=== PATIENT | male | born 1955 | race Caucasian/White ===

== ENCOUNTER 2018-09-26 22:51 | Inpatient (IN) | payer OTHER ==
[2018-09-27] MEDS ORDERED: ALBUTEROL/IPRATROPIUM (NEB) 3 ML AMP HHN
[2018-09-27] MEDS ORDERED: NACL 0.9% 3 ML SYG IV
[2018-09-27 05:48] LABS: ADD MAN DIFF? NO
[2018-09-27 05:56] LABS: BASOPHILS % 0.3 % (0.0-2.0); EOSINOPHILS # 0.1 10^3/ul (0.0-0.5); EOSINOPHILS % 1.5 % (0.0-7.0); HEMATOCRIT 34.6 % (42.0-52.0); HEMOGLOBIN 11.3 g/dl (14.0-18.0); LYMPHOCYTES # 2.1 10^3/ul (0.8-2.9); LYMPHOCYTES % 21.7 % (15.0-51.0); MEAN CORPUSCULAR HGB CONC 32.7 g/dl (32.0-37.0); MEAN CORPUSCULAR VOLUME 88.9 fl (82.0-101.0); MEAN PLATELET VOLUME 9.7 fl (7.4-10.4); MONOCYTE # 0.9 10^3/ul (0.3-0.9); MONOCYTES % 8.9 % (0.0-11.0); NEUTROPHIL # 6.4 10^3/ul (1.6-7.5); NEUTROPHILS % 66.9 % (39.0-77.0); NUCLEATED RED BLOOD CELLS% 0.2 /100WBC (0.0-0.0); PLATELET COUNT 202 10^3/UL (140-415); RED BLOOD COUNT 3.89 10^6/ul (4.70-6.10); RED CELL DISTRIBUTION WIDTH 15.5 % (11.5-14.5)
[2018-09-27 05:56] LABS: WHITE BLOOD COUNT 9.6 10^3/ul (4.8-10.8)
[2018-09-27 07:02] LABS: HEMOGLOBIN A1C 5.3 % (0-5.9)
[2018-09-27] MEDS: HEPARIN 5,000 UNIT/1 ML VIAL SC (08:10)
[2018-09-27 08:14] LABS: ALANINE AMINOTRANSFERASE 16 IU/L (13-69); ALBUMIN 4.3 g/dl (3.3-4.9); ALBUMIN/GLOBULIN RATIO 1.38; ALKALINE PHOSPHATASE 45 IU/L (42-121); ANION GAP 13 (5-13); ASPARTATE AMINO TRANSFERASE 20 IU/L (15-46); BILIRUBIN,INDIRECT 0.1 mg/dl (0-1.1); BILIRUBIN,TOTAL 0.1 mg/dl (0.2-1.3); BLOOD UREA NITROGEN 49 mg/dl (7-20); CALCIUM 9.7 mg/dl (8.4-10.2); CARBON DIOXIDE 30 mmol/L (21-31); CHLORIDE 98 mmol/L (97-110); CHOL/HDL RATIO 2.5 RATIO; CHOLESTEROL 122 mg/dl (100-200); CREATININE 4.95 mg/dl (0.61-1.24); Estimated GFR 12 mL/min (>60); GLUCOSE 82 mg/dl (70-220); HDL CHOLESTEROL 48 mg/dl (30-78); LDL CHOLESTEROL,CALCULATED 44 mg/dl; MAGNESIUM 1.9 mg/dl (1.7-2.5); PHOSPHORUS 4.2 mg/dl (2.5-4.9); POTASSIUM 3.4 mmol/L (3.5-5.1); SODIUM 141 mmol/L (135-144); TOTAL PROTEIN 7.4 g/dl (6.1-8.1); TRIGLYCERIDES 152 mg/dl (0-149)
[2018-09-27 08:49] LABS: LIPASE 371 U/L (23-300)
[2018-09-27] MEDS: morphine (ER) 30 MG TAB PO (09:38)
[2018-09-27] MEDS: POTASSIUM CHLORIDE (SR) 20 MEQ TAB PO (10:18)
[2018-09-27 19:42] LABS: HEPATITIS B SURFACE ANTIGEN NEGATIVE (NEGATIVE)
[2018-09-27] MEDS: ALBUMIN HUMAN 25% 100 ML IV (23:03)
[2018-09-28] MEDS: HEPARIN 1000 UNITS/ML 10 ML INJ CATHETER ×2 (00:13→17:59)
[2018-09-28] MEDS: HEPARIN 5,000 UNIT/1 ML VIAL SC ×3 (00:34→20:14)
[2018-09-28] MEDS: morphine (ER) 30 MG TAB PO ×3 (00:35→20:13)
[2018-09-28 05:44] LABS: ADD MAN DIFF? NO
[2018-09-28 05:49] LABS: WHITE BLOOD COUNT 8.9 10^3/ul (4.8-10.8)
[2018-09-28 05:49] LABS: BASOPHILS % 0.4 % (0.0-2.0); EOSINOPHILS # 0.3 10^3/ul (0.0-0.5); EOSINOPHILS % 3.3 % (0.0-7.0); HEMATOCRIT 33.5 % (42.0-52.0); HEMOGLOBIN 10.6 g/dl (14.0-18.0); LYMPHOCYTES # 2.1 10^3/ul (0.8-2.9); LYMPHOCYTES % 23.5 % (15.0-51.0); MEAN CORPUSCULAR HEMOGLOBIN 28.8 pg (29.0-33.0); MEAN CORPUSCULAR HGB CONC 31.6 g/dl (32.0-37.0); MEAN PLATELET VOLUME 9.8 fl (7.4-10.4); MONOCYTE # 0.8 10^3/ul (0.3-0.9); MONOCYTES % 9.3 % (0.0-11.0); NEUTROPHIL # 5.6 10^3/ul (1.6-7.5); NEUTROPHILS % 62.9 % (39.0-77.0); PLATELET COUNT 172 10^3/UL (140-415); RED BLOOD COUNT 3.68 10^6/ul (4.70-6.10); RED CELL DISTRIBUTION WIDTH 15.8 % (11.5-14.5)
[2018-09-28 06:15] LABS: ANION GAP 12 (5-13); BLOOD UREA NITROGEN 21 mg/dl (7-20); CALCIUM 9.4 mg/dl (8.4-10.2); CARBON DIOXIDE 30 mmol/L (21-31); CHLORIDE 100 mmol/L (97-110); CREATININE 2.81 mg/dl (0.61-1.24); Estimated GFR 23 mL/min (>60); GLUCOSE 117 mg/dl (70-220); MAGNESIUM 1.9 mg/dl (1.7-2.5); POTASSIUM 3.6 mmol/L (3.5-5.1); SODIUM 142 mmol/L (135-144)
[2018-09-28 06:17] LABS: LIPASE 562 U/L (23-300)
[2018-09-28] MEDS: HYDROCODONE/APAP (5/325) TAB PO (15:23)
[2018-09-29] MEDS: ALBUMIN HUMAN 25% 100 ML IV (00:37)
[2018-09-29] MEDS: HYDROCODONE/APAP (5/325) TAB PO ×3 (01:16→23:19)
[2018-09-29] MEDS: HYDROmorphONE 1 MG/ML SYG IV (01:41)
[2018-09-29] MEDS: morphine (ER) 30 MG TAB PO ×2 (08:36→20:53)
[2018-09-29] MEDS: HEPARIN 5,000 UNIT/1 ML VIAL SC ×2 (08:42→21:47)
[2018-09-29 10:54] LABS: ADD MAN DIFF? NO
[2018-09-29] MEDS ORDERED: morphine 2 MG INJ IV (11:00)
[2018-09-29 11:02] LABS: BASOPHILS % 0.4 % (0.0-2.0); EOSINOPHILS # 0.4 10^3/ul (0.0-0.5); HEMATOCRIT 38.1 % (42.0-52.0); HEMOGLOBIN 11.9 g/dl (14.0-18.0); LYMPHOCYTES % 21.5 % (15.0-51.0); MEAN CORPUSCULAR HEMOGLOBIN 29.2 pg (29.0-33.0); MEAN CORPUSCULAR HGB CONC 31.2 g/dl (32.0-37.0); MEAN CORPUSCULAR VOLUME 93.4 fl (82.0-101.0); MEAN PLATELET VOLUME 9.8 fl (7.4-10.4); MONOCYTE # 0.8 10^3/ul (0.3-0.9); MONOCYTES % 8.1 % (0.0-11.0); NEUTROPHIL # 6.1 10^3/ul (1.6-7.5); NEUTROPHILS % 65.4 % (39.0-77.0); PLATELET COUNT 172 10^3/UL (140-415); RED BLOOD COUNT 4.08 10^6/ul (4.70-6.10); RED CELL DISTRIBUTION WIDTH 16.5 % (11.5-14.5)
[2018-09-29 11:02] LABS: WHITE BLOOD COUNT 9.3 10^3/ul (4.8-10.8)
[2018-09-29 11:19] LABS: ANION GAP 13 (5-13); BLOOD UREA NITROGEN 26 mg/dl (7-20); CALCIUM 10.2 mg/dl (8.4-10.2); CARBON DIOXIDE 29 mmol/L (21-31); CHLORIDE 99 mmol/L (97-110); CREATININE 4.02 mg/dl (0.61-1.24); Estimated GFR 15 mL/min (>60); GLUCOSE 118 mg/dl (70-220); LIPASE 451 U/L (23-300); POTASSIUM 4.6 mmol/L (3.5-5.1); SODIUM 141 mmol/L (135-144)
[2018-09-29 11:30] LABS: TROPONIN-I 0.027 ng/ml (0.000-0.120)
[2018-09-29] MEDS: ACETAMINOPHEN 325 MG TAB PO (18:44)
[2018-09-30] MEDS: SOD CHLORIDE 0.9% 1,000 ML IV (03:51)
[2018-09-30] MEDS: KETOROLAC 30 MG INJ IV (03:56)
[2018-09-30] MEDS: SOD CHLORIDE 0.9% 250 ML IV (04:00)
[2018-09-30] MEDS: HYDROmorphONE 1 MG/ML SYG IV ×3 (04:54→14:33)
[2018-09-30] MEDS: morphine (ER) 30 MG TAB PO ×2 (08:12→20:42)
[2018-09-30] MEDS: ALBUMIN HUMAN 25% 100 ML IV (12:19)
[2018-09-30] MEDS: IOHEXOL 14.3 MG(I)/ML (ADULT) BTL PO (14:29)
[2018-09-30] MEDS: HEPARIN 1000 UNITS/ML 10 ML INJ CATHETER (15:25)
[2018-09-30 18:57] LABS: B-TYPE NATRIURETIC PEPTIDE 2160 PG/ML (0-125)
[2018-09-30 18:59] LABS: TROPONIN-I 0.023 ng/ml (0.000-0.120)
[2018-10-01 01:53] LABS: TROPONIN-I 0.039 ng/ml (0.000-0.120)
[2018-10-01 07:03] LABS: ADD MAN DIFF? NO
[2018-10-01 07:05] LABS: WHITE BLOOD COUNT 8.3 10^3/ul (4.8-10.8)
[2018-10-01 07:05] LABS: BASOPHILS % 0.4 % (0.0-2.0); EOSINOPHILS # 0.5 10^3/ul (0.0-0.5); EOSINOPHILS % 5.4 % (0.0-7.0); HEMATOCRIT 35.1 % (42.0-52.0); HEMOGLOBIN 10.9 g/dl (14.0-18.0); LYMPHOCYTES # 2.2 10^3/ul (0.8-2.9); LYMPHOCYTES % 26.2 % (15.0-51.0); MEAN CORPUSCULAR HEMOGLOBIN 29.5 pg (29.0-33.0); MEAN CORPUSCULAR HGB CONC 31.1 g/dl (32.0-37.0); MEAN CORPUSCULAR VOLUME 94.9 fl (82.0-101.0); MEAN PLATELET VOLUME 9.8 fl (7.4-10.4); MONOCYTE # 0.8 10^3/ul (0.3-0.9); MONOCYTES % 9.1 % (0.0-11.0); NEUTROPHIL # 4.9 10^3/ul (1.6-7.5); NEUTROPHILS % 58.5 % (39.0-77.0); PLATELET COUNT 172 10^3/UL (140-415); RED CELL DISTRIBUTION WIDTH 16.6 % (11.5-14.5)
[2018-10-01 07:34] LABS: ANION GAP 16 (5-13); BLOOD UREA NITROGEN 31 mg/dl (7-20); CALCIUM 9.9 mg/dl (8.4-10.2); CARBON DIOXIDE 25 mmol/L (21-31); CHLORIDE 97 mmol/L (97-110); CREATININE 4.21 mg/dl (0.61-1.24); Estimated GFR 14 mL/min (>60); GLUCOSE 79 mg/dl (70-220); POTASSIUM 4.9 mmol/L (3.5-5.1); SODIUM 138 mmol/L (135-144)
[2018-10-01 07:35] LABS: LIPASE 267 U/L (23-300)
[2018-10-01 08:05] LABS: MAGNESIUM 1.8 mg/dl (1.7-2.5)
[2018-10-01 08:05] LABS: PHOSPHORUS 6.1 mg/dl (2.5-4.9)
[2018-10-01] MEDS: morphine (ER) 30 MG TAB PO ×2 (08:13→20:55)
[2018-10-01 08:23] LABS: TROPONIN-I 0.028 ng/ml (0.000-0.120)
[2018-10-01] MEDS: METOPROLOL 25 MG TAB PO ×3 (10:11→20:55)
[2018-10-01 13:00] LABS: TROPONIN-I 0.019 ng/ml (0.000-0.120)
[2018-10-01] MEDS: HYDROmorphONE 1 MG/ML SYG IV (14:14)
[2018-10-01 19:00] LABS: TROPONIN-I 0.015 ng/ml (0.000-0.120)
[2018-10-02 01:26] LABS: TROPONIN-I 0.017 ng/ml (0.000-0.120)
[2018-10-02 06:15] LABS: ADD MAN DIFF? NO
[2018-10-02 06:24] LABS: BASOPHILS % 0.2 % (0.0-2.0); EOSINOPHILS % 0.3 % (0.0-7.0); HEMATOCRIT 37.4 % (42.0-52.0); HEMOGLOBIN 12.2 g/dl (14.0-18.0); LYMPHOCYTES # 0.7 10^3/ul (0.8-2.9); LYMPHOCYTES % 6.4 % (15.0-51.0); MEAN CORPUSCULAR HEMOGLOBIN 29.2 pg (29.0-33.0); MEAN CORPUSCULAR HGB CONC 32.6 g/dl (32.0-37.0); MEAN CORPUSCULAR VOLUME 89.5 fl (82.0-101.0); MEAN PLATELET VOLUME 9.4 fl (7.4-10.4); MONOCYTE # 0.6 10^3/ul (0.3-0.9); MONOCYTES % 5.9 % (0.0-11.0); NEUTROPHIL # 8.9 10^3/ul (1.6-7.5); NEUTROPHILS % 86.5 % (39.0-77.0); PLATELET COUNT 186 10^3/UL (140-415); RED BLOOD COUNT 4.18 10^6/ul (4.70-6.10); RED CELL DISTRIBUTION WIDTH 16.3 % (11.5-14.5)
[2018-10-02 06:24] LABS: WHITE BLOOD COUNT 10.3 10^3/ul (4.8-10.8)
[2018-10-02 06:43] LABS: ANION GAP 20 (5-13); BLOOD UREA NITROGEN 53 mg/dl (7-20); CALCIUM 10.2 mg/dl (8.4-10.2); CARBON DIOXIDE 25 mmol/L (21-31); CHLORIDE 92 mmol/L (97-110); CREATININE 4.86 mg/dl (0.61-1.24); Estimated GFR 12 mL/min (>60); GLUCOSE 108 mg/dl (70-220); LIPASE 194 U/L (23-300); SODIUM 137 mmol/L (135-144)
[2018-10-02] MEDS: morphine (ER) 30 MG TAB PO ×2 (08:18→22:20)
[2018-10-02] MEDS: METOPROLOL 25 MG TAB PO ×2 (08:19→21:00)
[2018-10-02] MEDS: BISACODYL 10 MG SUPP PR (16:36)
[2018-10-02] MEDS: SOD CHLORIDE 0.9% 1,000 ML IV (17:19)
[2018-10-02] MEDS: CEFEPIME 1GM/50 ML (PMX) 50 ML IVPB (22:12)
[2018-10-03 06:16] LABS: ADD MAN DIFF? NO
[2018-10-03 06:21] LABS: WHITE BLOOD COUNT 16.4 10^3/ul (4.8-10.8)
[2018-10-03 06:21] LABS: BASOPHILS % 0.2 % (0.0-2.0); EOSINOPHILS # 0.1 10^3/ul (0.0-0.5); EOSINOPHILS % 0.6 % (0.0-7.0); HEMATOCRIT 34.1 % (42.0-52.0); HEMOGLOBIN 11.1 g/dl (14.0-18.0); LYMPHOCYTES # 1.4 10^3/ul (0.8-2.9); LYMPHOCYTES % 8.5 % (15.0-51.0); MEAN CORPUSCULAR HEMOGLOBIN 29.2 pg (29.0-33.0); MEAN CORPUSCULAR HGB CONC 32.6 g/dl (32.0-37.0); MEAN CORPUSCULAR VOLUME 89.7 fl (82.0-101.0); MEAN PLATELET VOLUME 9.8 fl (7.4-10.4); MONOCYTE # 1.3 10^3/ul (0.3-0.9); MONOCYTES % 8.2 % (0.0-11.0); NEUTROPHIL # 13.4 10^3/ul (1.6-7.5); NEUTROPHILS % 81.9 % (39.0-77.0); PLATELET COUNT 153 10^3/UL (140-415); RED CELL DISTRIBUTION WIDTH 16.5 % (11.5-14.5)
[2018-10-03 06:58] LABS: ANION GAP 20 (5-13); BLOOD UREA NITROGEN 79 mg/dl (7-20); CALCIUM 9.4 mg/dl (8.4-10.2); CARBON DIOXIDE 15 mmol/L (21-31); CHLORIDE 99 mmol/L (97-110); CREATININE 4.93 mg/dl (0.61-1.24); Estimated GFR 12 mL/min (>60); GLUCOSE 83 mg/dl (70-220); MAGNESIUM 1.8 mg/dl (1.7-2.5); PHOSPHORUS 8.1 mg/dl (2.5-4.9); POTASSIUM 4.8 mmol/L (3.5-5.1); SODIUM 134 mmol/L (135-144)
[2018-10-03] MEDS: morphine (ER) 30 MG TAB PO ×2 (08:54→22:08)
[2018-10-03] MEDS: POLYETHYLENE GLYCOL 17 GM PACKET PO (08:54)
[2018-10-03] MEDS: METOPROLOL 25 MG TAB PO ×3 (08:57→22:09)
[2018-10-03] MEDS: MULTIVIT/CA CARB/B CMPLX/FA TAB PO (09:10)
[2018-10-03 11:06] LABS: ADD UMIC YES; UR ASCORBIC ACID NEGATIVE (NEGATIVE); UR BILIRUBIN (Dip) NEGATIVE (NEGATIVE); UR BLOOD (Dip) 3+ mg/dL (NEGATIVE); UR CLARITY CLOUDY (CLEAR); UR COLOR AMBER (YELLOW); UR GLUCOSE (Dip) NEGATIVE (NEGATIVE); UR KETONES (Dip) TRACE mg/dL (NEGATIVE); UR LEUKOCYTE ESTERASE (Dip) TRACE Leu/ul (NEGATIVE); UR NITRITE (Dip) NEGATIVE (NEGATIVE); UR RBC > 182 /HPF (0-5); UR SPECIFIC GRAVITY (Dip) 1.015 (1.003-1.030); UR SQUAMOUS EPITHELIAL CELL FEW /HPF (FEW); UR TOTAL PROTEIN (Dip) 2+ mg/dl (NEGATIVE); UR UROBILINOGEN (Dip) NEGATIVE (NEGATIVE); UR WBC 24 /HPF (0-5)
[2018-10-03] MEDS: SEVELAMER CARBONATE 800 MG TABLET PO ×2 (11:32→18:00)
[2018-10-03] MEDS: HEPARIN 1000 UNITS/ML 10 ML INJ CATHETER (14:56)
[2018-10-03] MEDS: METOCLOPRAMIDE 10 MG INJ IV ×2 (15:56→21:05)
[2018-10-03] MEDS: HYOSCYAMINE 0.125 MG SUBL TAB PO ×2 (16:46→22:09)
[2018-10-03] MEDS: CEFEPIME 1GM/50 ML (PMX) 50 ML IVPB (21:00)
[2018-10-03] MEDS ORDERED: HYOSCYAMINE 0.125 MG SUBL TAB PO (22:00)
[2018-10-04] MEDS: METOCLOPRAMIDE 10 MG INJ IV ×4 (03:30→21:23)
[2018-10-04] MEDS: HYOSCYAMINE 0.125 MG SUBL TAB PO ×3 (05:33→21:24)
[2018-10-04 06:00] LABS: ADD MAN DIFF? NO
[2018-10-04 06:11] LABS: ABNORMAL IP MESSAGE 1; BASOPHILS % 0.2 % (0.0-2.0); EOSINOPHILS # 0.3 10^3/ul (0.0-0.5); EOSINOPHILS % 2.1 % (0.0-7.0); HEMATOCRIT 31.2 % (42.0-52.0); HEMOGLOBIN 10.1 g/dl (14.0-18.0); LYMPHOCYTES # 1.6 10^3/ul (0.8-2.9); LYMPHOCYTES % 10.9 % (15.0-51.0); MEAN CORPUSCULAR HEMOGLOBIN 29.6 pg (29.0-33.0); MEAN CORPUSCULAR HGB CONC 32.4 g/dl (32.0-37.0); MEAN CORPUSCULAR VOLUME 91.5 fl (82.0-101.0); MEAN PLATELET VOLUME 9.6 fl (7.4-10.4); MONOCYTE # 1.5 10^3/ul (0.3-0.9); MONOCYTES % 10.4 % (0.0-11.0); NEUTROPHIL # 11.1 10^3/ul (1.6-7.5); NEUTROPHILS % 75.6 % (39.0-77.0); PLATELET COUNT 136 10^3/UL (140-415); POSITIVE DIFF @See below; RED BLOOD COUNT 3.41 10^6/ul (4.70-6.10); RED CELL DISTRIBUTION WIDTH 17.1 % (11.5-14.5)
[2018-10-04 06:11] LABS: WHITE BLOOD COUNT 14.7 10^3/ul (4.8-10.8)
[2018-10-04 06:38] LABS: ALANINE AMINOTRANSFERASE 21 IU/L (13-69); ALBUMIN 3.4 g/dl (3.3-4.9); ALBUMIN/GLOBULIN RATIO 1.21; ALKALINE PHOSPHATASE 42 IU/L (42-121); ANION GAP 13 (5-13); ASPARTATE AMINO TRANSFERASE 18 IU/L (15-46); BILIRUBIN,INDIRECT 0.2 mg/dl (0-1.1); BILIRUBIN,TOTAL 0.2 mg/dl (0.2-1.3); BLOOD UREA NITROGEN 49 mg/dl (7-20); CALCIUM 9.1 mg/dl (8.4-10.2); CARBON DIOXIDE 25 mmol/L (21-31); CHLORIDE 98 mmol/L (97-110); CREATININE 3.32 mg/dl (0.61-1.24); Estimated GFR 19 mL/min (>60); GLUCOSE 93 mg/dl (70-220); POTASSIUM 4.4 mmol/L (3.5-5.1); SODIUM 136 mmol/L (135-144); TOTAL PROTEIN 6.2 g/dl (6.1-8.1)
[2018-10-04] MEDS: SEVELAMER CARBONATE 800 MG TABLET PO ×3 (09:00→17:08)
[2018-10-04] MEDS: METOPROLOL 25 MG TAB PO ×2 (09:00→20:22)
[2018-10-04] MEDS ORDERED: POLYETHYLENE GLYCOL 17 GM PACKET PO (09:00)
[2018-10-04] MEDS: morphine (ER) 30 MG TAB PO ×2 (09:03→20:21)
[2018-10-04] MEDS: MULTIVIT/CA CARB/B CMPLX/FA TAB PO (09:05)
[2018-10-04] MEDS: POLYETHYLENE GLYCOL 17 GM PACKET PO (09:06)
[2018-10-04] MEDS: HYDROCODONE/APAP (5/325) TAB PO (17:08)
[2018-10-04] MEDS: CEFEPIME 1GM/50 ML (PMX) 50 ML IVPB (20:22)
[2018-10-05] MEDS: METOCLOPRAMIDE 10 MG INJ IV ×4 (03:48→20:32)
[2018-10-05] MEDS: morphine 2 MG INJ IV ×3 (03:50→18:03)
[2018-10-05] MEDS: HYOSCYAMINE 0.125 MG SUBL TAB PO ×3 (05:33→22:16)
[2018-10-05 06:27] LABS: ADD MAN DIFF? NO
[2018-10-05 06:36] LABS: WHITE BLOOD COUNT 12.5 10^3/ul (4.8-10.8)
[2018-10-05 06:36] LABS: BASOPHILS % 0.2 % (0.0-2.0); EOSINOPHILS # 0.2 10^3/ul (0.0-0.5); EOSINOPHILS % 1.8 % (0.0-7.0); HEMATOCRIT 29.5 % (42.0-52.0); HEMOGLOBIN 9.6 g/dl (14.0-18.0); LYMPHOCYTES % 7.8 % (15.0-51.0); MEAN CORPUSCULAR HEMOGLOBIN 29.7 pg (29.0-33.0); MEAN CORPUSCULAR HGB CONC 32.5 g/dl (32.0-37.0); MEAN CORPUSCULAR VOLUME 91.3 fl (82.0-101.0); MEAN PLATELET VOLUME 9.8 fl (7.4-10.4); MONOCYTE # 1.2 10^3/ul (0.3-0.9); MONOCYTES % 9.7 % (0.0-11.0); NEUTROPHILS % 79.9 % (39.0-77.0); PLATELET COUNT 165 10^3/UL (140-415); RED BLOOD COUNT 3.23 10^6/ul (4.70-6.10); RED CELL DISTRIBUTION WIDTH 17.1 % (11.5-14.5)
[2018-10-05] MEDS ORDERED: PROPOFOL 200 MG INJ (07:00)
[2018-10-05 07:10] LABS: ANION GAP 12 (5-13); BLOOD UREA NITROGEN 45 mg/dl (7-20); CALCIUM 9.4 mg/dl (8.4-10.2); CARBON DIOXIDE 25 mmol/L (21-31); CHLORIDE 97 mmol/L (97-110); CREATININE 3.16 mg/dl (0.61-1.24); Estimated GFR 20 mL/min (>60); GLUCOSE 129 mg/dl (70-220); POTASSIUM 3.8 mmol/L (3.5-5.1); SODIUM 134 mmol/L (135-144)
[2018-10-05] MEDS: SEVELAMER CARBONATE 800 MG TABLET PO ×3 (08:22→18:08)
[2018-10-05] MEDS: POLYETHYLENE GLYCOL 17 GM PACKET PO (08:22)
[2018-10-05] MEDS: METOPROLOL 25 MG TAB PO ×2 (08:22→20:31)
[2018-10-05] MEDS: MULTIVIT/CA CARB/B CMPLX/FA TAB PO (08:22)
[2018-10-05] MEDS: morphine (ER) 30 MG TAB PO ×2 (09:44→20:31)
[2018-10-05] MEDS: CYCLOBENZAPRINE 10 MG TAB PO ×2 (13:30→20:30)
[2018-10-05] MEDS: LORAZEPAM 2 MG INJ IV (14:02)
[2018-10-05] MEDS: DEXTROSE 5%-0.45% NACL 1,000 ML IV (14:04)
[2018-10-05] MEDS ORDERED: VANCOMYCIN IV PER PHARMACY XX (15:00)
[2018-10-05] MEDS ORDERED: AMIKACIN IV PER PHARMACY XX (15:00)
[2018-10-05 15:09] LABS: MAGNESIUM 1.7 mg/dl (1.7-2.5)
[2018-10-05 15:10] LABS: CREATINE KINASE 21 IU/L (23-200)
[2018-10-05 15:16] LABS: IRON 21 ug/dl (35-150)
[2018-10-05 15:26] LABS: % IRON SATURATION 11 % SAT (22-52); TOTAL IRON BINDING CAPACITY 189 ug/dl (241-421)
[2018-10-05] MEDS ORDERED: DIPHENHYDRAMINE 50 MG INJ IV (16:00)
[2018-10-05] MEDS ORDERED: hydrALAzine 20 MG INJ IV (16:00)
[2018-10-05] MEDS ORDERED: LABETALOL HCL 20MG INJ IV (16:00)
[2018-10-05] MEDS ORDERED: EPHEDrine SULFATE 50 MG/5 ML SYG IV (16:00)
[2018-10-05] MEDS ORDERED: ALBUTEROL 0.083% (NEB) 2.5 MG/3 ML AMP HHN (16:00)
[2018-10-05] MEDS ORDERED: ONDANSETRON 4 MG INJ IV (16:00)
[2018-10-05] MEDS ORDERED: MIDAZOLAM 1 MG/ML 2 ML INJ IV (16:00)
[2018-10-05] MEDS: PROPOFOL 40 ML (16:32)
[2018-10-05] MEDS: LIDOCAINE 2% (SDV) 5 ML INJ (16:32)
[2018-10-05 16:44] LABS: FOLATE > 20.0 ng/ml (2.8-20.0)
[2018-10-05] MEDS: AMIKACIN 500 MG in SOD CHLORIDE 0.9% 100 ML IVPB (17:16)
[2018-10-05] MEDS: VANCOMYCIN HCL 1.25 GM in SOD CHLORIDE 0.9% 250 ML IVPB (18:38)
[2018-10-05] MEDS: HEPARIN 5,000 UNIT/1 ML VIAL SC (20:32)
[2018-10-06] MEDS: METOCLOPRAMIDE 10 MG INJ IV ×4 (03:30→21:17)
[2018-10-06] MEDS: HEPARIN 1000 UNITS/ML 10 ML INJ CATHETER ×2 (04:20→04:23)
[2018-10-06] MEDS: HYOSCYAMINE 0.125 MG SUBL TAB PO ×3 (05:42→21:19)
[2018-10-06 05:53] LABS: ADD MAN DIFF? NO
[2018-10-06 06:05] LABS: BASOPHILS % 0.2 % (0.0-2.0); EOSINOPHILS # 0.3 10^3/ul (0.0-0.5); EOSINOPHILS % 3.5 % (0.0-7.0); HEMATOCRIT 29.1 % (42.0-52.0); HEMOGLOBIN 9.3 g/dl (14.0-18.0); LYMPHOCYTES # 1.3 10^3/ul (0.8-2.9); LYMPHOCYTES % 14.4 % (15.0-51.0); MEAN CORPUSCULAR HEMOGLOBIN 29.5 pg (29.0-33.0); MEAN CORPUSCULAR VOLUME 92.4 fl (82.0-101.0); MEAN PLATELET VOLUME 9.7 fl (7.4-10.4); MONOCYTE # 0.9 10^3/ul (0.3-0.9); NEUTROPHIL # 6.2 10^3/ul (1.6-7.5); NEUTROPHILS % 71.2 % (39.0-77.0); PLATELET COUNT 185 10^3/UL (140-415); RED BLOOD COUNT 3.15 10^6/ul (4.70-6.10); RED CELL DISTRIBUTION WIDTH 17.2 % (11.5-14.5)
[2018-10-06 06:05] LABS: WHITE BLOOD COUNT 8.8 10^3/ul (4.8-10.8)
[2018-10-06 06:41] LABS: ANION GAP 10 (5-13); BLOOD UREA NITROGEN 17 mg/dl (7-20); CALCIUM 8.5 mg/dl (8.4-10.2); CARBON DIOXIDE 26 mmol/L (21-31); CHLORIDE 103 mmol/L (97-110); CREATININE 1.32 mg/dl (0.61-1.24); Estimated GFR 55 mL/min (>60); GLUCOSE 104 mg/dl (70-220); MAGNESIUM 1.7 mg/dl (1.7-2.5); POTASSIUM 3.8 mmol/L (3.5-5.1); SODIUM 139 mmol/L (135-144)
[2018-10-06] MEDS: MULTIVIT/CA CARB/B CMPLX/FA TAB PO (09:46)
[2018-10-06] MEDS: CYCLOBENZAPRINE 10 MG TAB PO ×3 (09:46→21:20)
[2018-10-06] MEDS: SEVELAMER CARBONATE 800 MG TABLET PO ×3 (09:46→17:03)
[2018-10-06] MEDS: METOPROLOL 25 MG TAB PO ×2 (09:47→21:20)
[2018-10-06] MEDS: POLYETHYLENE GLYCOL 17 GM PACKET PO (09:47)
[2018-10-06] MEDS: morphine (ER) 30 MG TAB PO ×2 (09:52→21:19)
[2018-10-06] MEDS: HEPARIN 5,000 UNIT/1 ML VIAL SC ×2 (10:15→21:27)
[2018-10-06] MEDS: SOD FERRIC GLUC COMPLX 125 MG in SOD CHLORIDE 0.9% 100 ML IVPB (12:25)
[2018-10-06] MEDS: SUCRALFATE (100 MG/ML) 10ML CUP PO ×3 (13:18→21:19)
[2018-10-06] MEDS: morphine 2 MG INJ IV ×2 (15:25→20:02)
[2018-10-06] MEDS: PANTOPRAZOLE (EC) 40 MG TAB PO (17:03)
[2018-10-06] MEDS: AMIKACIN 300 MG in SOD CHLORIDE 0.9% 100 ML IVPB (19:01)
[2018-10-07] MEDS: METOCLOPRAMIDE 10 MG INJ IV ×4 (02:44→21:02)
[2018-10-07] MEDS: HYOSCYAMINE 0.125 MG SUBL TAB PO ×3 (05:12→22:00)
[2018-10-07] MEDS: PANTOPRAZOLE (EC) 40 MG TAB PO ×2 (05:12→17:44)
[2018-10-07] MEDS: morphine 2 MG INJ IV ×4 (05:17→21:00)
[2018-10-07 05:52] LABS: ADD MAN DIFF? NO
[2018-10-07 05:57] LABS: WHITE BLOOD COUNT 7.7 10^3/ul (4.8-10.8)
[2018-10-07 05:57] LABS: BASOPHILS % 0.4 % (0.0-2.0); EOSINOPHILS # 0.4 10^3/ul (0.0-0.5); EOSINOPHILS % 4.8 % (0.0-7.0); HEMATOCRIT 28.1 % (42.0-52.0); LYMPHOCYTES # 2.2 10^3/ul (0.8-2.9); LYMPHOCYTES % 28.5 % (15.0-51.0); MEAN CORPUSCULAR HEMOGLOBIN 29.8 pg (29.0-33.0); MEAN PLATELET VOLUME 9.8 fl (7.4-10.4); MONOCYTES % 12.5 % (0.0-11.0); NEUTROPHIL # 4.1 10^3/ul (1.6-7.5); NEUTROPHILS % 53.1 % (39.0-77.0); NUCLEATED RED BLOOD CELLS% 0.3 /100WBC (0.0-0.0); PLATELET COUNT 239 10^3/UL (140-415); RED BLOOD COUNT 3.02 10^6/ul (4.70-6.10); RED CELL DISTRIBUTION WIDTH 17.4 % (11.5-14.5)
[2018-10-07 06:21] LABS: ANION GAP 5 (5-13); BLOOD UREA NITROGEN 20 mg/dl (7-20); CALCIUM 8.9 mg/dl (8.4-10.2); CARBON DIOXIDE 27 mmol/L (21-31); CHLORIDE 107 mmol/L (97-110); CREATININE 2.26 mg/dl (0.61-1.24); Estimated GFR 30 mL/min (>60); GLUCOSE 93 mg/dl (70-220); POTASSIUM 4.4 mmol/L (3.5-5.1); SODIUM 139 mmol/L (135-144)
[2018-10-07 06:25] LABS: VANCOMYCIN,RANDOM 10.5 ug/ml
[2018-10-07 06:50] LABS: MAGNESIUM 1.7 mg/dl (1.7-2.5)
[2018-10-07] MEDS: MULTIVIT/CA CARB/B CMPLX/FA TAB PO (08:47)
[2018-10-07] MEDS: SEVELAMER CARBONATE 800 MG TABLET PO ×3 (08:47→17:44)
[2018-10-07] MEDS: METOPROLOL 25 MG TAB PO ×3 (08:47→20:51)
[2018-10-07] MEDS: SUCRALFATE (100 MG/ML) 10ML CUP PO ×4 (08:48→20:50)
[2018-10-07] MEDS: morphine (ER) 30 MG TAB PO ×2 (08:48→20:52)
[2018-10-07] MEDS: CYCLOBENZAPRINE 10 MG TAB PO ×2 (08:48→12:18)
[2018-10-07] MEDS: POLYETHYLENE GLYCOL 17 GM PACKET PO (08:48)
[2018-10-07] MEDS: HEPARIN 5,000 UNIT/1 ML VIAL SC ×2 (09:52→21:25)
[2018-10-07 10:55] LABS: HEPATITIS C VIRAL ANTIBODY NEGATIVE (NEGATIVE)
[2018-10-07] MEDS ORDERED: SOD FERRIC GLUC COMPLX 125 MG in SOD CHLORIDE 0.9% 100 ML IVPB (13:00)
[2018-10-07] MEDS: SOD FERRIC GLUC COMPLX 125 MG in SOD CHLORIDE 0.9% 100 ML IVPB (13:35)
[2018-10-07] MEDS: LACTULOSE 30ML CUP PO (16:31)
[2018-10-07] MEDS: HEPARIN 1000 UNITS/ML 10 ML INJ CATHETER (16:36)
[2018-10-07] MEDS: VANCOMYCIN 1 GM 250 ML IVPB (17:45)
[2018-10-07] MEDS: ACETAMINOPHEN 325 MG TAB PO (19:37)
[2018-10-07] MEDS: AMIKACIN 300 MG in SOD CHLORIDE 0.9% 100 ML IVPB (20:50)
[2018-10-08] MEDS: METOCLOPRAMIDE 10 MG INJ IV ×4 (03:38→21:35)
[2018-10-08] MEDS: PANTOPRAZOLE (EC) 40 MG TAB PO ×2 (05:36→17:39)
[2018-10-08] MEDS: HYOSCYAMINE 0.125 MG SUBL TAB PO ×3 (05:37→21:35)
[2018-10-08] MEDS: morphine 2 MG INJ IV ×3 (05:45→17:53)
[2018-10-08 06:06] LABS: ADD MAN DIFF? NO
[2018-10-08 06:22] LABS: BASOPHILS % 0.6 % (0.0-2.0); EOSINOPHILS # 0.3 10^3/ul (0.0-0.5); EOSINOPHILS % 4.6 % (0.0-7.0); HEMATOCRIT 29.3 % (42.0-52.0); LYMPHOCYTES # 2.4 10^3/ul (0.8-2.9); LYMPHOCYTES % 33.6 % (15.0-51.0); MEAN CORPUSCULAR HGB CONC 30.7 g/dl (32.0-37.0); MEAN CORPUSCULAR VOLUME 94.5 fl (82.0-101.0); MEAN PLATELET VOLUME 9.4 fl (7.4-10.4); MONOCYTE # 0.8 10^3/ul (0.3-0.9); NEUTROPHIL # 3.3 10^3/ul (1.6-7.5); NEUTROPHILS % 47.5 % (39.0-77.0); PLATELET COUNT 229 10^3/UL (140-415); RED CELL DISTRIBUTION WIDTH 16.9 % (11.5-14.5)
[2018-10-08 06:45] LABS: ANION GAP 6 (5-13); BLOOD UREA NITROGEN 11 mg/dl (7-20); CARBON DIOXIDE 30 mmol/L (21-31); CHLORIDE 104 mmol/L (97-110); CREATININE 1.88 mg/dl (0.61-1.24); Estimated GFR 37 mL/min (>60); GLUCOSE 94 mg/dl (70-220); POTASSIUM 4.8 mmol/L (3.5-5.1); SODIUM 140 mmol/L (135-144)
[2018-10-08] MEDS: METOPROLOL 25 MG TAB PO ×3 (08:33→20:28)
[2018-10-08] MEDS: SEVELAMER CARBONATE 800 MG TABLET PO ×3 (08:34→17:39)
[2018-10-08] MEDS: morphine (ER) 30 MG TAB PO ×2 (08:34→20:27)
[2018-10-08] MEDS: SUCRALFATE (100 MG/ML) 10ML CUP PO ×4 (08:34→20:27)
[2018-10-08] MEDS: POLYETHYLENE GLYCOL 17 GM PACKET PO (08:35)
[2018-10-08] MEDS: MULTIVIT/CA CARB/B CMPLX/FA TAB PO (08:35)
[2018-10-08] MEDS: HEPARIN 5,000 UNIT/1 ML VIAL SC ×2 (08:39→21:21)
[2018-10-08] MEDS: CREON (12k-38k-60k) 1 CAP PO ×2 (12:10→17:39)
[2018-10-08] MEDS: CYANOCOBALAMIN 1000 MCG INJ IM (12:14)
[2018-10-08] MEDS: SOD FERRIC GLUC COMPLX 125 MG in SOD CHLORIDE 0.9% 100 ML IVPB (14:01)
[2018-10-09] MEDS: METOCLOPRAMIDE 10 MG INJ IV ×2 (03:20→09:30)
[2018-10-09] MEDS: HYOSCYAMINE 0.125 MG SUBL TAB PO ×3 (05:52→21:21)
[2018-10-09] MEDS: PANTOPRAZOLE (EC) 40 MG TAB PO ×2 (05:52→17:07)
[2018-10-09] MEDS: morphine 2 MG INJ IV ×4 (05:55→21:14)
[2018-10-09] MEDS: morphine (ER) 30 MG TAB PO ×2 (08:20→19:53)
[2018-10-09] MEDS: SUCRALFATE (100 MG/ML) 10ML CUP PO ×4 (08:20→21:13)
[2018-10-09] MEDS: MULTIVIT/CA CARB/B CMPLX/FA TAB PO (08:21)
[2018-10-09] MEDS: METOPROLOL 25 MG TAB PO ×3 (08:21→21:00)
[2018-10-09] MEDS: CREON (12k-38k-60k) 1 CAP PO ×3 (08:21→17:07)
[2018-10-09] MEDS: CHOLECALCIFEROL 2,000 UNIT CAP PO (08:21)
[2018-10-09] MEDS: SEVELAMER CARBONATE 800 MG TABLET PO ×3 (08:21→17:07)
[2018-10-09] MEDS: POLYETHYLENE GLYCOL 17 GM PACKET PO (08:22)
[2018-10-09] MEDS: HEPARIN 5,000 UNIT/1 ML VIAL SC ×2 (09:37→21:31)
[2018-10-09 12:46] LABS: ALANINE AMINOTRANSFERASE 17 IU/L (13-69); ALBUMIN 3.3 g/dl (3.3-4.9); ALBUMIN/GLOBULIN RATIO 1.13; ALKALINE PHOSPHATASE 50 IU/L (42-121); ANION GAP 9 (5-13); ASPARTATE AMINO TRANSFERASE 16 IU/L (15-46); BILIRUBIN,INDIRECT 0.2 mg/dl (0-1.1); BILIRUBIN,TOTAL 0.2 mg/dl (0.2-1.3); BLOOD UREA NITROGEN 21 mg/dl (7-20); CARBON DIOXIDE 30 mmol/L (21-31); CHLORIDE 99 mmol/L (97-110); CREATININE 2.67 mg/dl (0.61-1.24); Estimated GFR 24 mL/min (>60); GLUCOSE 107 mg/dl (70-220); POTASSIUM 4.6 mmol/L (3.5-5.1); SODIUM 138 mmol/L (135-144); TOTAL PROTEIN 6.2 g/dl (6.1-8.1)
[2018-10-09 12:47] LABS: LIPASE 189 U/L (23-300)
[2018-10-09] MEDS: SOD FERRIC GLUC COMPLX 125 MG in SOD CHLORIDE 0.9% 100 ML IVPB (13:49)
[2018-10-09] MEDS: METOCLOPRAMIDE 10 MG TAB PO ×2 (17:07→23:41)
[2018-10-10] MEDS: morphine 2 MG INJ IV ×4 (05:27→22:28)
[2018-10-10] MEDS: METOCLOPRAMIDE 10 MG TAB PO ×4 (05:27→23:16)
[2018-10-10] MEDS: HYOSCYAMINE 0.125 MG SUBL TAB PO ×3 (05:27→22:28)
[2018-10-10] MEDS: PANTOPRAZOLE (EC) 40 MG TAB PO ×2 (05:29→17:47)
[2018-10-10 05:59] LABS: ADD MAN DIFF? NO
[2018-10-10 06:09] LABS: WHITE BLOOD COUNT 8.3 10^3/ul (4.8-10.8)
[2018-10-10 06:09] LABS: BASOPHILS % 0.4 % (0.0-2.0); EOSINOPHILS # 0.3 10^3/ul (0.0-0.5); HEMOGLOBIN 8.7 g/dl (14.0-18.0); LYMPHOCYTES # 1.7 10^3/ul (0.8-2.9); LYMPHOCYTES % 21.1 % (15.0-51.0); MEAN CORPUSCULAR HEMOGLOBIN 29.1 pg (29.0-33.0); MEAN CORPUSCULAR HGB CONC 31.1 g/dl (32.0-37.0); MEAN CORPUSCULAR VOLUME 93.6 fl (82.0-101.0); MEAN PLATELET VOLUME 9.2 fl (7.4-10.4); MONOCYTE # 0.9 10^3/ul (0.3-0.9); MONOCYTES % 11.4 % (0.0-11.0); NEUTROPHIL # 5.2 10^3/ul (1.6-7.5); NEUTROPHILS % 63.1 % (39.0-77.0); PLATELET COUNT 277 10^3/UL (140-415); RED BLOOD COUNT 2.99 10^6/ul (4.70-6.10); RED CELL DISTRIBUTION WIDTH 16.7 % (11.5-14.5)
[2018-10-10] MEDS: ACETAMINOPHEN 325 MG TAB PO ×2 (06:34→20:11)
[2018-10-10 06:57] LABS: VANCOMYCIN,RANDOM 9.4 ug/ml
[2018-10-10 07:04] LABS: ALANINE AMINOTRANSFERASE 13 IU/L (13-69); ALBUMIN 2.9 g/dl (3.3-4.9); ALKALINE PHOSPHATASE 38 IU/L (42-121); ANION GAP 7 (5-13); ASPARTATE AMINO TRANSFERASE 19 IU/L (15-46); BILIRUBIN,INDIRECT 0.2 mg/dl (0-1.1); BILIRUBIN,TOTAL 0.2 mg/dl (0.2-1.3); BLOOD UREA NITROGEN 24 mg/dl (7-20); CARBON DIOXIDE 30 mmol/L (21-31); CHLORIDE 103 mmol/L (97-110); CREATININE 2.65 mg/dl (0.61-1.24); Estimated GFR 25 mL/min (>60); GLUCOSE 91 mg/dl (70-220); POTASSIUM 4.6 mmol/L (3.5-5.1); SODIUM 140 mmol/L (135-144); TOTAL PROTEIN 5.8 g/dl (6.1-8.1)
[2018-10-10] MEDS: HEPARIN 1000 UNITS/ML 10 ML INJ CATHETER (09:56)
[2018-10-10] MEDS: POLYETHYLENE GLYCOL 17 GM PACKET PO (10:30)
[2018-10-10] MEDS: SEVELAMER CARBONATE 800 MG TABLET PO ×3 (10:37→17:47)
[2018-10-10] MEDS: CREON (12k-38k-60k) 1 CAP PO ×3 (10:37→17:47)
[2018-10-10] MEDS: SUCRALFATE (100 MG/ML) 10ML CUP PO ×4 (10:37→20:12)
[2018-10-10] MEDS: CHOLECALCIFEROL 2,000 UNIT CAP PO (10:38)
[2018-10-10] MEDS: MULTIVIT/CA CARB/B CMPLX/FA TAB PO (10:38)
[2018-10-10] MEDS: AMIKACIN 300 MG in SOD CHLORIDE 0.9% 100 ML IVPB (10:39)
[2018-10-10] MEDS: morphine (ER) 30 MG TAB PO ×2 (10:40→20:12)
[2018-10-10] MEDS: METOPROLOL 25 MG TAB PO ×3 (10:45→20:11)
[2018-10-10] MEDS: HEPARIN 5,000 UNIT/1 ML VIAL SC ×2 (11:12→20:20)
[2018-10-10] MEDS: SOD FERRIC GLUC COMPLX 125 MG in SOD CHLORIDE 0.9% 100 ML IVPB (12:15)
[2018-10-10] MEDS: VANCOMYCIN 1 GM 250 ML IVPB (14:40)
[2018-10-10] MEDS: BACLOFEN 10 MG TAB PO ×2 (15:22→20:11)
[2018-10-10] MEDS: THIAMINE 100 MG TAB PO (15:22)
[2018-10-10] MEDS: LACTOBACILLUS RHAMNOSUS CAP PO (20:11)
[2018-10-11] MEDS: morphine 2 MG INJ IV ×4 (05:14→20:53)
[2018-10-11] MEDS: PANTOPRAZOLE (EC) 40 MG TAB PO ×2 (05:31→17:53)
[2018-10-11] MEDS: METOCLOPRAMIDE 10 MG TAB PO ×3 (05:31→17:53)
[2018-10-11] MEDS: HYOSCYAMINE 0.125 MG SUBL TAB PO ×2 (05:31→14:07)
[2018-10-11] MEDS: CREON (12k-38k-60k) 1 CAP PO ×3 (08:39→17:53)
[2018-10-11] MEDS: SUCRALFATE (100 MG/ML) 10ML CUP PO ×4 (08:39→20:08)
[2018-10-11] MEDS: MULTIVIT/CA CARB/B CMPLX/FA TAB PO (08:39)
[2018-10-11] MEDS: THIAMINE 100 MG TAB PO (08:39)
[2018-10-11] MEDS: CHOLECALCIFEROL 2,000 UNIT CAP PO (08:39)
[2018-10-11] MEDS: SEVELAMER CARBONATE 800 MG TABLET PO ×3 (08:39→17:53)
[2018-10-11] MEDS: LACTOBACILLUS RHAMNOSUS CAP PO ×2 (08:40→20:08)
[2018-10-11] MEDS: METOPROLOL 25 MG TAB PO ×3 (08:40→20:15)
[2018-10-11] MEDS: BACLOFEN 10 MG TAB PO ×3 (08:40→20:08)
[2018-10-11] MEDS: POLYETHYLENE GLYCOL 17 GM PACKET PO ×2 (08:41→20:08)
[2018-10-11] MEDS: morphine (ER) 30 MG TAB PO ×2 (08:42→20:08)
[2018-10-11] MEDS: HEPARIN 5,000 UNIT/1 ML VIAL SC ×2 (08:43→20:15)
[2018-10-11] MEDS: ACETAMINOPHEN 325 MG TAB PO ×2 (12:20→22:08)
[2018-10-12] MEDS ORDERED: METOCLOPRAMIDE (1 MG/ML) 10 ML CUP (00:11)
[2018-10-12] MEDS: HYOSCYAMINE 0.125 MG SUBL TAB PO ×4 (00:13→21:13)
[2018-10-12] MEDS: METOCLOPRAMIDE 10 MG TAB PO ×5 (01:04→23:12)
[2018-10-12] MEDS: morphine 2 MG INJ IV ×3 (03:14→23:12)
[2018-10-12] MEDS: PANTOPRAZOLE (EC) 40 MG TAB PO ×2 (05:12→17:39)
[2018-10-12] MEDS: HYDROCODONE/APAP (10/325) TAB PO (05:12)
[2018-10-12 06:06] LABS: ADD MAN DIFF? NO
[2018-10-12 06:14] LABS: WHITE BLOOD COUNT 15.1 10^3/ul (4.8-10.8)
[2018-10-12 06:14] LABS: ABNORMAL IP MESSAGE 1; BASOPHIL # 0.1 10^3/ul (0.0-0.1); BASOPHILS % 0.3 % (0.0-2.0); EOSINOPHILS # 0.1 10^3/ul (0.0-0.5); EOSINOPHILS % 0.9 % (0.0-7.0); HEMATOCRIT 30.4 % (42.0-52.0); HEMOGLOBIN 9.4 g/dl (14.0-18.0); LYMPHOCYTES # 2.1 10^3/ul (0.8-2.9); LYMPHOCYTES % 13.8 % (15.0-51.0); MEAN CORPUSCULAR HEMOGLOBIN 29.5 pg (29.0-33.0); MEAN CORPUSCULAR HGB CONC 30.9 g/dl (32.0-37.0); MEAN CORPUSCULAR VOLUME 95.3 fl (82.0-101.0); MEAN PLATELET VOLUME 9.6 fl (7.4-10.4); MONOCYTE # 1.9 10^3/ul (0.3-0.9); MONOCYTES % 12.2 % (0.0-11.0); NEUTROPHIL # 10.8 10^3/ul (1.6-7.5); NEUTROPHILS % 71.5 % (39.0-77.0); PLATELET COUNT 280 10^3/UL (140-415); POSITIVE DIFF @See below; RED BLOOD COUNT 3.19 10^6/ul (4.70-6.10); RED CELL DISTRIBUTION WIDTH 16.3 % (11.5-14.5)
[2018-10-12] MEDS: ONDANSETRON 4 MG INJ IV (06:37)
[2018-10-12 06:40] LABS: LIPASE 584 U/L (23-300)
[2018-10-12 06:44] LABS: ALANINE AMINOTRANSFERASE 8 IU/L (13-69); ALBUMIN 3.3 g/dl (3.3-4.9); ALKALINE PHOSPHATASE 48 IU/L (42-121); ANION GAP 6 (5-13); ASPARTATE AMINO TRANSFERASE 29 IU/L (15-46); BILIRUBIN,INDIRECT 0.1 mg/dl (0-1.1); BILIRUBIN,TOTAL 0.1 mg/dl (0.2-1.3); BLOOD UREA NITROGEN 30 mg/dl (7-20); CALCIUM 9.1 mg/dl (8.4-10.2); CARBON DIOXIDE 30 mmol/L (21-31); CHLORIDE 104 mmol/L (97-110); CREATININE 2.25 mg/dl (0.61-1.24); Estimated GFR 30 mL/min (>60); GLUCOSE 90 mg/dl (70-220); POTASSIUM 4.6 mmol/L (3.5-5.1); SODIUM 140 mmol/L (135-144); TOTAL PROTEIN 6.3 g/dl (6.1-8.1)
[2018-10-12 07:39] LABS: VANCOMYCIN,RANDOM 9.9 ug/ml
[2018-10-12] MEDS: POLYETHYLENE GLYCOL 17 GM PACKET PO ×2 (09:00→21:00)
[2018-10-12] MEDS: SEVELAMER CARBONATE 800 MG TABLET PO ×3 (09:47→17:38)
[2018-10-12] MEDS: morphine (ER) 30 MG TAB PO ×2 (09:48→21:14)
[2018-10-12] MEDS: CREON (12k-38k-60k) 1 CAP PO ×3 (09:49→17:39)
[2018-10-12] MEDS: LACTOBACILLUS RHAMNOSUS CAP PO ×2 (09:49→21:12)
[2018-10-12] MEDS: MULTIVIT/CA CARB/B CMPLX/FA TAB PO (09:49)
[2018-10-12] MEDS: BACLOFEN 10 MG TAB PO ×3 (09:49→21:13)
[2018-10-12] MEDS: THIAMINE 100 MG TAB PO (09:49)
[2018-10-12] MEDS: CHOLECALCIFEROL 2,000 UNIT CAP PO (09:49)
[2018-10-12] MEDS: HEPARIN 5,000 UNIT/1 ML VIAL SC ×2 (09:51→21:16)
[2018-10-12] MEDS: SUCRALFATE (100 MG/ML) 10ML CUP PO ×4 (10:00→21:12)
[2018-10-12] MEDS: METOPROLOL 25 MG TAB PO ×3 (10:00→21:00)
[2018-10-12] MEDS: HEPARIN 1000 UNITS/ML 10 ML INJ CATHETER (13:10)
[2018-10-12] MEDS: AMIKACIN 300 MG in SOD CHLORIDE 0.9% 100 ML IVPB (14:01)
[2018-10-12] MEDS: VANCOMYCIN 1 GM 250 ML IVPB (16:02)
[2018-10-12] MEDS: EPOETIN ALFA-EPBX (ESRD) 10,000 UNIT/ML VIAL SC (17:46)
[2018-10-13] MEDS: morphine 2 MG INJ IV ×5 (03:08→21:40)
[2018-10-13] MEDS: METOCLOPRAMIDE 10 MG TAB PO ×4 (05:55→23:57)
[2018-10-13] MEDS: PANTOPRAZOLE (EC) 40 MG TAB PO ×2 (05:55→17:23)
[2018-10-13] MEDS: HYOSCYAMINE 0.125 MG SUBL TAB PO ×3 (05:55→21:40)
[2018-10-13 07:07] LABS: LACTIC ACID 0.5 mmol/L (0.5-2.0)
[2018-10-13] MEDS: CREON (12k-38k-60k) 1 CAP PO ×3 (07:45→17:23)
[2018-10-13] MEDS: SEVELAMER CARBONATE 800 MG TABLET PO ×3 (07:45→17:23)
[2018-10-13] MEDS: SUCRALFATE (100 MG/ML) 10ML CUP PO ×4 (09:03→20:09)
[2018-10-13] MEDS: MULTIVIT/CA CARB/B CMPLX/FA TAB PO (09:03)
[2018-10-13] MEDS: morphine (ER) 30 MG TAB PO ×2 (09:03→20:10)
[2018-10-13] MEDS: LACTOBACILLUS RHAMNOSUS CAP PO ×2 (09:03→20:09)
[2018-10-13] MEDS: CHOLECALCIFEROL 2,000 UNIT CAP PO (09:03)
[2018-10-13] MEDS: POLYETHYLENE GLYCOL 17 GM PACKET PO ×2 (09:03→20:16)
[2018-10-13] MEDS: BACLOFEN 10 MG TAB PO ×3 (09:03→20:09)
[2018-10-13] MEDS: THIAMINE 100 MG TAB PO (09:03)
[2018-10-13] MEDS: METOPROLOL 25 MG TAB PO ×3 (09:04→20:10)
[2018-10-13] MEDS: HEPARIN 5,000 UNIT/1 ML VIAL SC ×2 (09:05→20:15)
[2018-10-13] MEDS: ONDANSETRON 4 MG INJ IV (20:17)
[2018-10-14] MEDS: morphine 2 MG INJ IV ×3 (01:40→17:29)
[2018-10-14] MEDS ORDERED: PENDING SANTYL ORDER FOR WOUND CARE XX (05:30)
[2018-10-14] MEDS: PANTOPRAZOLE (EC) 40 MG TAB PO ×2 (05:39→17:28)
[2018-10-14] MEDS: METOCLOPRAMIDE 10 MG TAB PO ×3 (05:39→17:28)
[2018-10-14] MEDS: HYOSCYAMINE 0.125 MG SUBL TAB PO ×3 (05:39→21:16)
[2018-10-14 08:30] LABS: LIPASE 150 U/L (23-300)
[2018-10-14] MEDS: METOPROLOL 25 MG TAB PO ×3 (09:00→20:26)
[2018-10-14] MEDS: POLYETHYLENE GLYCOL 17 GM PACKET PO (09:01)
[2018-10-14] MEDS: LACTOBACILLUS RHAMNOSUS CAP PO ×2 (09:02→20:25)
[2018-10-14] MEDS: THIAMINE 100 MG TAB PO (09:02)
[2018-10-14] MEDS: BACLOFEN 10 MG TAB PO ×3 (09:02→20:25)
[2018-10-14] MEDS: CREON (12k-38k-60k) 1 CAP PO ×3 (09:02→17:28)
[2018-10-14] MEDS: morphine (ER) 30 MG TAB PO ×2 (09:02→20:26)
[2018-10-14] MEDS: MULTIVIT/CA CARB/B CMPLX/FA TAB PO (09:02)
[2018-10-14] MEDS: CHOLECALCIFEROL 2,000 UNIT CAP PO (09:02)
[2018-10-14] MEDS: SEVELAMER CARBONATE 800 MG TABLET PO ×3 (09:02→17:28)
[2018-10-14] MEDS: SUCRALFATE (100 MG/ML) 10ML CUP PO ×4 (09:03→20:25)
[2018-10-14] MEDS: HEPARIN 5,000 UNIT/1 ML VIAL SC ×2 (09:03→20:32)
[2018-10-14] MEDS ORDERED: LACTULOSE 30ML CUP PO (12:00)
[2018-10-14] MEDS: LACTULOSE 30ML CUP PO (12:25)
[2018-10-14] MEDS: LORAZEPAM 1 MG TAB PO (12:26)
[2018-10-14] MEDS: EPOETIN ALFA-EPBX (ESRD) 10,000 UNIT/ML VIAL SC (14:58)
[2018-10-14] MEDS: HEPARIN 1000 UNITS/ML 10 ML INJ CATHETER (16:56)
[2018-10-14] MEDS: VANCOMYCIN 1 GM 250 ML IVPB (17:29)
[2018-10-14] MEDS: AMIKACIN 300 MG in SOD CHLORIDE 0.9% 100 ML IVPB (20:27)
[2018-10-15] MEDS: METOCLOPRAMIDE 10 MG TAB PO ×5 (00:48→23:25)
[2018-10-15] MEDS: LORAZEPAM 1 MG TAB PO ×2 (02:47→13:01)
[2018-10-15 06:03] LABS: ADD MAN DIFF? NO
[2018-10-15] MEDS: HYOSCYAMINE 0.125 MG SUBL TAB PO ×3 (06:09→23:26)
[2018-10-15] MEDS: PANTOPRAZOLE (EC) 40 MG TAB PO ×2 (06:09→17:20)
[2018-10-15 06:38] LABS: ALANINE AMINOTRANSFERASE 10 IU/L (13-69); ALBUMIN 3.4 g/dl (3.3-4.9); ALBUMIN/GLOBULIN RATIO 0.94; ALKALINE PHOSPHATASE 46 IU/L (42-121); ANION GAP 8 (5-13); ASPARTATE AMINO TRANSFERASE 34 IU/L (15-46); BILIRUBIN,INDIRECT 0.1 mg/dl (0-1.1); BILIRUBIN,TOTAL 0.1 mg/dl (0.2-1.3); BLOOD UREA NITROGEN 18 mg/dl (7-20); CALCIUM 9.6 mg/dl (8.4-10.2); CARBON DIOXIDE 28 mmol/L (21-31); CHLORIDE 104 mmol/L (97-110); CREATININE 1.73 mg/dl (0.61-1.24); Estimated GFR 40 mL/min (>60); GLUCOSE 106 mg/dl (70-220); POTASSIUM 4.7 mmol/L (3.5-5.1); SODIUM 140 mmol/L (135-144)
[2018-10-15 08:28] LABS: WHITE BLOOD COUNT 16.2 10^3/ul (4.8-10.8)
[2018-10-15 08:28] LABS: BASOPHIL # 0.1 10^3/ul (0.0-0.1); BASOPHILS % 0.4 % (0.0-2.0); EOSINOPHILS # 0.2 10^3/ul (0.0-0.5); EOSINOPHILS % 1.1 % (0.0-7.0); HEMATOCRIT 30.4 % (42.0-52.0); HEMOGLOBIN 9.5 g/dl (14.0-18.0); LYMPHOCYTES % 18.4 % (15.0-51.0); MEAN CORPUSCULAR HEMOGLOBIN 29.4 pg (29.0-33.0); MEAN CORPUSCULAR HGB CONC 31.3 g/dl (32.0-37.0); MEAN CORPUSCULAR VOLUME 94.1 fl (82.0-101.0); MEAN PLATELET VOLUME 9.8 fl (7.4-10.4); MONOCYTE # 1.2 10^3/ul (0.3-0.9); MONOCYTES % 7.3 % (0.0-11.0); NEUTROPHIL # 11.7 10^3/ul (1.6-7.5); NEUTROPHILS % 72.1 % (39.0-77.0); PLATELET COUNT 287 10^3/UL (140-415); RED BLOOD COUNT 3.23 10^6/ul (4.70-6.10); RED CELL DISTRIBUTION WIDTH 16.6 % (11.5-14.5)
[2018-10-15 08:36] LABS: MAGNESIUM 1.9 mg/dl (1.7-2.5)
[2018-10-15 08:36] LABS: PHOSPHORUS 2.7 mg/dl (2.5-4.9)
[2018-10-15 08:43] LABS: PREALBUMIN 18.1 mg/dl (17.6-36.0)
[2018-10-15] MEDS: CHOLECALCIFEROL 2,000 UNIT CAP PO (09:07)
[2018-10-15] MEDS: CREON (12k-38k-60k) 1 CAP PO ×3 (09:07→17:20)
[2018-10-15] MEDS: SUCRALFATE (100 MG/ML) 10ML CUP PO ×4 (09:07→20:08)
[2018-10-15] MEDS: MULTIVIT/CA CARB/B CMPLX/FA TAB PO (09:07)
[2018-10-15] MEDS: LACTOBACILLUS RHAMNOSUS CAP PO ×2 (09:07→20:08)
[2018-10-15] MEDS: morphine (ER) 30 MG TAB PO ×2 (09:07→20:08)
[2018-10-15] MEDS: SEVELAMER CARBONATE 800 MG TABLET PO ×3 (09:07→17:20)
[2018-10-15] MEDS: BACLOFEN 10 MG TAB PO ×3 (09:08→20:08)
[2018-10-15] MEDS: THIAMINE 100 MG TAB PO (09:08)
[2018-10-15] MEDS: METOPROLOL 25 MG TAB PO ×3 (09:08→20:09)
[2018-10-15] MEDS: HEPARIN 5,000 UNIT/1 ML VIAL SC ×2 (09:09→20:12)
[2018-10-15] MEDS: POLYETHYLENE GLYCOL 17 GM PACKET PO (09:09)
[2018-10-15] MEDS: morphine 2 MG INJ IV (16:00)
[2018-10-16] MEDS: morphine 2 MG INJ IV ×3 (00:58→23:58)
[2018-10-16] MEDS: LORAZEPAM 1 MG TAB PO ×4 (03:56→22:03)
[2018-10-16] MEDS: PANTOPRAZOLE (EC) 40 MG TAB PO ×2 (05:46→17:27)
[2018-10-16] MEDS: METOCLOPRAMIDE 10 MG TAB PO ×4 (05:46→23:55)
[2018-10-16] MEDS: HYOSCYAMINE 0.125 MG SUBL TAB PO ×3 (05:46→21:01)
[2018-10-16] MEDS: METOPROLOL 25 MG TAB PO ×3 (07:58→21:02)
[2018-10-16] MEDS: SEVELAMER CARBONATE 800 MG TABLET PO ×3 (08:40→17:26)
[2018-10-16] MEDS: MULTIVIT/CA CARB/B CMPLX/FA TAB PO (08:41)
[2018-10-16] MEDS: LACTOBACILLUS RHAMNOSUS CAP PO ×2 (08:41→21:02)
[2018-10-16] MEDS: CHOLECALCIFEROL 2,000 UNIT CAP PO (08:41)
[2018-10-16] MEDS: THIAMINE 100 MG TAB PO (08:42)
[2018-10-16] MEDS: BACLOFEN 10 MG TAB PO ×3 (08:42→21:01)
[2018-10-16] MEDS: morphine (ER) 30 MG TAB PO ×2 (08:43→21:01)
[2018-10-16] MEDS: CREON (12k-38k-60k) 1 CAP PO ×3 (08:45→17:26)
[2018-10-16] MEDS: SUCRALFATE (100 MG/ML) 10ML CUP PO ×4 (08:48→21:01)
[2018-10-16] MEDS: POLYETHYLENE GLYCOL 17 GM PACKET PO (08:48)
[2018-10-16] MEDS: HEPARIN 5,000 UNIT/1 ML VIAL SC ×2 (08:50→21:03)
[2018-10-17] MEDS: morphine 2 MG INJ IV (03:58)
[2018-10-17] MEDS: HYOSCYAMINE 0.125 MG SUBL TAB PO ×3 (05:36→21:50)
[2018-10-17] MEDS: METOCLOPRAMIDE 10 MG TAB PO ×3 (05:36→18:30)
[2018-10-17] MEDS: PANTOPRAZOLE (EC) 40 MG TAB PO ×2 (05:36→18:30)
[2018-10-17] MEDS: LORAZEPAM 1 MG TAB PO (05:38)
[2018-10-17] MEDS: THIAMINE 100 MG TAB PO (08:26)
[2018-10-17] MEDS: SUCRALFATE (100 MG/ML) 10ML CUP PO ×4 (08:26→20:15)
[2018-10-17] MEDS: CHOLECALCIFEROL 2,000 UNIT CAP PO (08:26)
[2018-10-17] MEDS: LACTOBACILLUS RHAMNOSUS CAP PO ×2 (08:27→20:11)
[2018-10-17] MEDS: CREON (12k-38k-60k) 1 CAP PO ×3 (08:27→18:29)
[2018-10-17] MEDS: HEPARIN 5,000 UNIT/1 ML VIAL SC ×2 (08:27→20:18)
[2018-10-17] MEDS: MULTIVIT/CA CARB/B CMPLX/FA TAB PO (08:27)
[2018-10-17] MEDS: POLYETHYLENE GLYCOL 17 GM PACKET PO (08:28)
[2018-10-17] MEDS: METOPROLOL 25 MG TAB PO ×3 (08:28→20:12)
[2018-10-17] MEDS: BACLOFEN 10 MG TAB PO ×3 (08:28→20:12)
[2018-10-17] MEDS: SEVELAMER CARBONATE 800 MG TABLET PO ×3 (08:28→18:30)
[2018-10-17] MEDS: morphine (ER) 30 MG TAB PO (08:28)
[2018-10-17] MEDS: ALBUMIN HUMAN 25% 100 ML IV (11:08)
[2018-10-17] MEDS: HEPARIN 1000 UNITS/ML 10 ML INJ CATHETER (13:37)
[2018-10-17 13:45] LABS: ADD MAN DIFF? NO
[2018-10-17 13:48] LABS: WHITE BLOOD COUNT 7.6 10^3/ul (4.8-10.8)
[2018-10-17 13:48] LABS: BASOPHILS % 0.5 % (0.0-2.0); EOSINOPHILS # 0.2 10^3/ul (0.0-0.5); EOSINOPHILS % 3.2 % (0.0-7.0); HEMATOCRIT 22.9 % (42.0-52.0); HEMOGLOBIN 7.1 g/dl (14.0-18.0); LYMPHOCYTES # 1.5 10^3/ul (0.8-2.9); LYMPHOCYTES % 19.2 % (15.0-51.0); MEAN CORPUSCULAR HEMOGLOBIN 30.3 pg (29.0-33.0); MEAN CORPUSCULAR VOLUME 97.9 fl (82.0-101.0); MEAN PLATELET VOLUME 9.6 fl (7.4-10.4); MONOCYTE # 0.6 10^3/ul (0.3-0.9); MONOCYTES % 7.9 % (0.0-11.0); NEUTROPHIL # 5.2 10^3/ul (1.6-7.5); NEUTROPHILS % 68.1 % (39.0-77.0); PLATELET COUNT 249 10^3/UL (140-415); RED BLOOD COUNT 2.34 10^6/ul (4.70-6.10); RED CELL DISTRIBUTION WIDTH 17.1 % (11.5-14.5)
[2018-10-17 13:54] LABS: ANION GAP 2 (5-13); BLOOD UREA NITROGEN 16 mg/dl (7-20); CALCIUM 8.6 mg/dl (8.4-10.2); CARBON DIOXIDE 28 mmol/L (21-31); CHLORIDE 110 mmol/L (97-110); CREATININE 1.34 mg/dl (0.61-1.24); Estimated GFR 54 mL/min (>60); GLUCOSE 101 mg/dl (70-220); POTASSIUM 4.1 mmol/L (3.5-5.1); SODIUM 140 mmol/L (135-144)
[2018-10-17] MEDS: SOD CHLORIDE 0.9% 250 ML IV* (15:06)
[2018-10-17] MEDS: morphine (ER) 15 MG TAB PO (20:12)
[2018-10-17] MEDS: EPOETIN ALFA-EPBX (ESRD) 10,000 UNIT/ML VIAL SC (20:17)
[2018-10-17 21:00] LABS: IMMEDIATE SPIN CROSSMATCH 1 1
[2018-10-18] MEDS: METOCLOPRAMIDE 10 MG TAB PO ×4 (00:23→16:51)
[2018-10-18] MEDS: LORAZEPAM 1 MG TAB PO ×3 (02:39→20:41)
[2018-10-18] MEDS: PANTOPRAZOLE (EC) 40 MG TAB PO ×2 (05:24→16:50)
[2018-10-18] MEDS: HYOSCYAMINE 0.125 MG SUBL TAB PO ×3 (05:24→21:04)
[2018-10-18] MEDS: morphine 2 MG INJ IV ×2 (05:34→09:20)
[2018-10-18 07:14] LABS: ADD MAN DIFF? NO
[2018-10-18 07:24] LABS: WHITE BLOOD COUNT 7.7 10^3/ul (4.8-10.8)
[2018-10-18 07:24] LABS: BASOPHIL # 0.1 10^3/ul (0.0-0.1); BASOPHILS % 0.6 % (0.0-2.0); EOSINOPHILS # 0.2 10^3/ul (0.0-0.5); EOSINOPHILS % 2.6 % (0.0-7.0); HEMOGLOBIN 8.6 g/dl (14.0-18.0); LYMPHOCYTES # 1.9 10^3/ul (0.8-2.9); MEAN CORPUSCULAR HEMOGLOBIN 30.7 pg (29.0-33.0); MEAN CORPUSCULAR HGB CONC 30.7 g/dl (32.0-37.0); MEAN PLATELET VOLUME 9.5 fl (7.4-10.4); MONOCYTE # 0.8 10^3/ul (0.3-0.9); MONOCYTES % 9.7 % (0.0-11.0); NEUTROPHIL # 4.8 10^3/ul (1.6-7.5); NEUTROPHILS % 61.5 % (39.0-77.0); PLATELET COUNT 255 10^3/UL (140-415); RED CELL DISTRIBUTION WIDTH 17.5 % (11.5-14.5)
[2018-10-18] MEDS: SUCRALFATE (100 MG/ML) 10ML CUP PO ×4 (09:25→20:40)
[2018-10-18] MEDS: METOPROLOL 25 MG TAB PO ×3 (09:25→20:41)
[2018-10-18] MEDS: CREON (12k-38k-60k) 1 CAP PO ×3 (09:26→16:50)
[2018-10-18] MEDS: SEVELAMER CARBONATE 800 MG TABLET PO ×3 (09:26→16:51)
[2018-10-18] MEDS: LACTOBACILLUS RHAMNOSUS CAP PO ×2 (09:26→20:40)
[2018-10-18] MEDS: BACLOFEN 10 MG TAB PO ×3 (09:26→20:40)
[2018-10-18] MEDS: THIAMINE 100 MG TAB PO (09:28)
[2018-10-18] MEDS: CHOLECALCIFEROL 2,000 UNIT CAP PO (09:28)
[2018-10-18] MEDS: MULTIVIT/CA CARB/B CMPLX/FA TAB PO (09:28)
[2018-10-18] MEDS: POLYETHYLENE GLYCOL 17 GM PACKET PO (09:29)
[2018-10-18] MEDS: HEPARIN 5,000 UNIT/1 ML VIAL SC ×2 (09:31→20:44)
[2018-10-18 11:00] LABS: ANION GAP 6 (5-13); BLOOD UREA NITROGEN 13 mg/dl (7-20); CALCIUM 8.9 mg/dl (8.4-10.2); CARBON DIOXIDE 27 mmol/L (21-31); CHLORIDE 112 mmol/L (97-110); CREATININE 1.35 mg/dl (0.61-1.24); Estimated GFR 54 mL/min (>60); GLUCOSE 93 mg/dl (70-220); MAGNESIUM 1.5 mg/dl (1.7-2.5); PHOSPHORUS 2.6 mg/dl (2.5-4.9); POTASSIUM 4.5 mmol/L (3.5-5.1); SODIUM 145 mmol/L (135-144)
[2018-10-18] MEDS: morphine (ER) 15 MG TAB PO ×2 (13:10→20:41)
[2018-10-18] MEDS: BARIUM SULF 2% 450 ML BTL (BERRY SMOOTHIE) PO ×2 (16:47→17:59)
[2018-10-18] MEDS: MAGNESIUM SULFATE 2 GM/50 ML 50 ML IVPB (20:40)
[2018-10-19] MEDS: METOCLOPRAMIDE 10 MG TAB PO ×4 (00:25→17:29)
[2018-10-19] MEDS: HYOSCYAMINE 0.125 MG SUBL TAB PO ×2 (06:04→13:21)
[2018-10-19] MEDS: LORAZEPAM 1 MG TAB PO ×2 (06:04→13:32)
[2018-10-19] MEDS: PANTOPRAZOLE (EC) 40 MG TAB PO ×2 (06:04→17:29)
[2018-10-19] MEDS: morphine 2 MG INJ IV ×4 (06:05→19:42)
[2018-10-19] MEDS: SEVELAMER CARBONATE 800 MG TABLET PO ×3 (08:00→17:29)
[2018-10-19] MEDS: CREON (12k-38k-60k) 1 CAP PO ×3 (08:00→17:29)
[2018-10-19] MEDS: METOPROLOL 25 MG TAB PO ×2 (09:00→13:22)
[2018-10-19] MEDS: BACLOFEN 10 MG TAB PO ×2 (09:20→13:22)
[2018-10-19] MEDS: LACTOBACILLUS RHAMNOSUS CAP PO (09:20)
[2018-10-19] MEDS: SUCRALFATE (100 MG/ML) 10ML CUP PO ×4 (09:20→21:00)
[2018-10-19] MEDS: MULTIVIT/CA CARB/B CMPLX/FA TAB PO (09:20)
[2018-10-19] MEDS: THIAMINE 100 MG TAB PO (09:20)
[2018-10-19] MEDS: CHOLECALCIFEROL 2,000 UNIT CAP PO (09:20)
[2018-10-19] MEDS: morphine (ER) 15 MG TAB PO (09:21)
[2018-10-19] MEDS: POLYETHYLENE GLYCOL 17 GM PACKET PO (09:21)
[2018-10-19] MEDS: HEPARIN 5,000 UNIT/1 ML VIAL SC (09:32)
[2018-10-19] MEDS: ALTEPLASE (CATHFLO) 2 MG INJ CATHETER (10:28)
[2018-10-19] MEDS: EPOETIN ALFA-EPBX (ESRD) 10,000 UNIT/ML VIAL SC (17:00)
[2018-10-19] MEDS: ONDANSETRON 4 MG INJ IV (19:42)
[2018-10-19] MEDS: HEPARIN 1000 UNITS/ML 10 ML INJ CATHETER (22:41)
[2018-10-20] MEDS: HEPARIN 5,000 UNIT/1 ML VIAL SC ×3 (00:01→21:20)
[2018-10-20] MEDS: EPOETIN ALFA-EPBX (ESRD) 10,000 UNIT/ML VIAL SC (00:07)
[2018-10-20] MEDS: SUCRALFATE (100 MG/ML) 10ML CUP PO ×5 (00:08→21:18)
[2018-10-20] MEDS: METOCLOPRAMIDE 10 MG TAB PO ×4 (00:08→17:34)
[2018-10-20] MEDS: LACTOBACILLUS RHAMNOSUS CAP PO ×3 (00:08→21:19)
[2018-10-20] MEDS: BACLOFEN 10 MG TAB PO ×4 (00:09→21:18)
[2018-10-20] MEDS: HYOSCYAMINE 0.125 MG SUBL TAB PO ×4 (00:09→21:18)
[2018-10-20] MEDS: METOPROLOL 25 MG TAB PO ×4 (00:09→21:18)
[2018-10-20] MEDS: morphine (ER) 15 MG TAB PO ×3 (01:20→21:18)
[2018-10-20] MEDS: LORAZEPAM 1 MG TAB PO ×2 (05:09→11:27)
[2018-10-20] MEDS: PANTOPRAZOLE (EC) 40 MG TAB PO ×2 (05:09→17:34)
[2018-10-20] MEDS: morphine 2 MG INJ IV ×4 (07:33→20:10)
[2018-10-20] MEDS: ACETAMINOPHEN 325 MG TAB PO (08:48)
[2018-10-20] MEDS: CHOLECALCIFEROL 2,000 UNIT CAP PO (08:49)
[2018-10-20] MEDS: SEVELAMER CARBONATE 800 MG TABLET PO ×3 (08:50→17:34)
[2018-10-20] MEDS: THIAMINE 100 MG TAB PO (08:51)
[2018-10-20] MEDS: MULTIVIT/CA CARB/B CMPLX/FA TAB PO (08:52)
[2018-10-20] MEDS: CREON (12k-38k-60k) 1 CAP PO ×3 (08:52→17:34)
[2018-10-20] MEDS: POLYETHYLENE GLYCOL 17 GM PACKET PO (08:55)
[2018-10-20 18:41] LABS: INR 1.03; PROTIME 13.6 Sec (11.9-14.9); PT RATIO 1.1
[2018-10-20] MEDS: WARFARIN 5 MG TAB PO (21:19)
[2018-10-21] MEDS: METOCLOPRAMIDE 10 MG TAB PO ×4 (00:22→17:00)
[2018-10-21] MEDS: LORAZEPAM 1 MG TAB PO ×4 (00:48→22:50)
[2018-10-21] MEDS: PANTOPRAZOLE (EC) 40 MG TAB PO ×2 (05:12→17:00)
[2018-10-21] MEDS: HYOSCYAMINE 0.125 MG SUBL TAB PO ×3 (05:13→22:50)
[2018-10-21] MEDS: morphine 2 MG INJ IV ×3 (05:13→18:45)
[2018-10-21 07:44] LABS: ADD MAN DIFF? NO
[2018-10-21 07:46] LABS: WHITE BLOOD COUNT 6.4 10^3/ul (4.8-10.8)
[2018-10-21 07:46] LABS: BASOPHILS % 0.6 % (0.0-2.0); EOSINOPHILS # 0.3 10^3/ul (0.0-0.5); EOSINOPHILS % 4.5 % (0.0-7.0); HEMOGLOBIN 8.9 g/dl (14.0-18.0); LYMPHOCYTES % 31.5 % (15.0-51.0); MEAN CORPUSCULAR HEMOGLOBIN 29.8 pg (29.0-33.0); MEAN CORPUSCULAR HGB CONC 30.7 g/dl (32.0-37.0); MEAN PLATELET VOLUME 10.2 fl (7.4-10.4); MONOCYTE # 0.8 10^3/ul (0.3-0.9); MONOCYTES % 12.1 % (0.0-11.0); NEUTROPHIL # 3.3 10^3/ul (1.6-7.5); NEUTROPHILS % 50.5 % (39.0-77.0); PLATELET COUNT 240 10^3/UL (140-415); RED BLOOD COUNT 2.99 10^6/ul (4.70-6.10); RED CELL DISTRIBUTION WIDTH 16.8 % (11.5-14.5)
[2018-10-21 08:08] LABS: INR 1.03; PROTIME 13.6 Sec (11.9-14.9); PT RATIO 1.1
[2018-10-21 08:17] LABS: ANION GAP 6 (5-13); BLOOD UREA NITROGEN 12 mg/dl (7-20); CALCIUM 8.6 mg/dl (8.4-10.2); CARBON DIOXIDE 33 mmol/L (21-31); CHLORIDE 103 mmol/L (97-110); CREATININE 1.62 mg/dl (0.61-1.24); Estimated GFR 44 mL/min (>60); GLUCOSE 86 mg/dl (70-220); MAGNESIUM 1.8 mg/dl (1.7-2.5); PHOSPHORUS 3.4 mg/dl (2.5-4.9); POTASSIUM 4.3 mmol/L (3.5-5.1); SODIUM 142 mmol/L (135-144)
[2018-10-21] MEDS: METOPROLOL 25 MG TAB PO ×3 (09:00→20:33)
[2018-10-21] MEDS: CREON (12k-38k-60k) 1 CAP PO ×3 (09:01→17:00)
[2018-10-21] MEDS: BACLOFEN 10 MG TAB PO ×3 (09:02→20:31)
[2018-10-21] MEDS: CHOLECALCIFEROL 2,000 UNIT CAP PO (09:02)
[2018-10-21] MEDS: SEVELAMER CARBONATE 800 MG TABLET PO ×3 (09:02→17:01)
[2018-10-21] MEDS: morphine (ER) 15 MG TAB PO (09:02)
[2018-10-21] MEDS: THIAMINE 100 MG TAB PO (09:02)
[2018-10-21] MEDS: LACTOBACILLUS RHAMNOSUS CAP PO ×2 (09:02→20:31)
[2018-10-21] MEDS: MULTIVIT/CA CARB/B CMPLX/FA TAB PO (09:02)
[2018-10-21] MEDS: SUCRALFATE (100 MG/ML) 10ML CUP PO ×4 (09:02→20:31)
[2018-10-21] MEDS: POLYETHYLENE GLYCOL 17 GM PACKET PO (09:02)
[2018-10-21] MEDS: HEPARIN 5,000 UNIT/1 ML VIAL SC ×2 (09:10→20:31)
[2018-10-21] MEDS: SENNA TAB PO ×2 (12:43→20:31)
[2018-10-21] MEDS: WARFARIN 5 MG TAB PO (16:53)
[2018-10-21] MEDS: EPOETIN ALFA-EPBX (ESRD) 10,000 UNIT/ML VIAL SC (18:38)
[2018-10-21] MEDS: HEPARIN 1000 UNITS/ML 10 ML INJ CATHETER (18:42)
[2018-10-21] MEDS: morphine (ER) 30 MG TAB PO (20:32)
[2018-10-21] MEDS ORDERED: morphine (ER) 15 MG TAB PO (21:00)
[2018-10-22] MEDS: METOCLOPRAMIDE 10 MG TAB PO ×4 (00:09→17:17)
[2018-10-22] MEDS: morphine 2 MG INJ IV ×3 (00:11→14:25)
[2018-10-22] MEDS: PANTOPRAZOLE (EC) 40 MG TAB PO ×2 (06:26→17:17)
[2018-10-22] MEDS: HYOSCYAMINE 0.125 MG SUBL TAB PO ×3 (06:26→21:32)
[2018-10-22] MEDS: LORAZEPAM 1 MG TAB PO ×3 (06:30→21:32)
[2018-10-22 07:43] LABS: INR 1.07; PT RATIO 1.1
[2018-10-22 07:45] LABS: ANION GAP 4 (5-13); BLOOD UREA NITROGEN 10 mg/dl (7-20); CALCIUM 8.9 mg/dl (8.4-10.2); CARBON DIOXIDE 29 mmol/L (21-31); CHLORIDE 106 mmol/L (97-110); CREATININE 1.44 mg/dl (0.61-1.24); Estimated GFR 50 mL/min (>60); GLUCOSE 93 mg/dl (70-220); MAGNESIUM 1.8 mg/dl (1.7-2.5); PHOSPHORUS 2.9 mg/dl (2.5-4.9); POTASSIUM 4.4 mmol/L (3.5-5.1); SODIUM 139 mmol/L (135-144)
[2018-10-22] MEDS: POLYETHYLENE GLYCOL 17 GM PACKET PO (08:48)
[2018-10-22] MEDS: SUCRALFATE (100 MG/ML) 10ML CUP PO ×4 (08:48→20:30)
[2018-10-22] MEDS: BACLOFEN 10 MG TAB PO ×3 (08:49→20:34)
[2018-10-22] MEDS: CHOLECALCIFEROL 2,000 UNIT CAP PO (08:49)
[2018-10-22] MEDS: morphine (ER) 30 MG TAB PO ×2 (08:49→20:34)
[2018-10-22] MEDS: THIAMINE 100 MG TAB PO (08:49)
[2018-10-22] MEDS: SENNA TAB PO ×2 (08:49→20:37)
[2018-10-22] MEDS: SEVELAMER CARBONATE 800 MG TABLET PO ×3 (08:49→17:17)
[2018-10-22] MEDS: CREON (12k-38k-60k) 1 CAP PO ×3 (08:49→17:17)
[2018-10-22] MEDS: MULTIVIT/CA CARB/B CMPLX/FA TAB PO (08:50)
[2018-10-22] MEDS: HEPARIN 5,000 UNIT/1 ML VIAL SC ×2 (08:50→20:33)
[2018-10-22] MEDS: METOPROLOL 25 MG TAB PO ×3 (08:50→20:37)
[2018-10-22] MEDS: LACTOBACILLUS RHAMNOSUS CAP PO ×2 (08:50→20:31)
[2018-10-22] MEDS: WARFARIN 5 MG TAB PO (17:17)
[2018-10-23] MEDS: METOCLOPRAMIDE 10 MG TAB PO ×3 (00:18→13:00)
[2018-10-23] MEDS: HYOSCYAMINE 0.125 MG SUBL TAB PO ×3 (05:08→21:10)
[2018-10-23] MEDS: PANTOPRAZOLE (EC) 40 MG TAB PO ×2 (05:08→17:40)
[2018-10-23] MEDS: morphine 2 MG INJ IV ×2 (05:09→13:13)
[2018-10-23] MEDS: LORAZEPAM 1 MG TAB PO ×3 (07:50→23:52)
[2018-10-23 07:58] LABS: ANION GAP 10 (5-13); BLOOD UREA NITROGEN 21 mg/dl (7-20); CALCIUM 9.7 mg/dl (8.4-10.2); CARBON DIOXIDE 29 mmol/L (21-31); CHLORIDE 103 mmol/L (97-110); CREATININE 1.74 mg/dl (0.61-1.24); Estimated GFR 40 mL/min (>60); GLUCOSE 81 mg/dl (70-220); MAGNESIUM 1.8 mg/dl (1.7-2.5); POTASSIUM 4.5 mmol/L (3.5-5.1); SODIUM 142 mmol/L (135-144)
[2018-10-23 08:12] LABS: INR 0.92; PROTIME 12.5 Sec (11.9-14.9)
[2018-10-23] MEDS: SUCRALFATE (100 MG/ML) 10ML CUP PO ×4 (08:55→20:20)
[2018-10-23] MEDS: POLYETHYLENE GLYCOL 17 GM PACKET PO (08:55)
[2018-10-23] MEDS: CHOLECALCIFEROL 2,000 UNIT CAP PO (08:56)
[2018-10-23] MEDS: SENNA TAB PO ×2 (08:56→20:22)
[2018-10-23] MEDS: CREON (12k-38k-60k) 1 CAP PO ×3 (08:56→17:41)
[2018-10-23] MEDS: MULTIVIT/CA CARB/B CMPLX/FA TAB PO (08:56)
[2018-10-23] MEDS: SEVELAMER CARBONATE 800 MG TABLET PO ×3 (08:57→17:41)
[2018-10-23] MEDS: morphine (ER) 30 MG TAB PO ×2 (08:57→20:23)
[2018-10-23] MEDS: LACTOBACILLUS RHAMNOSUS CAP PO ×2 (08:58→20:21)
[2018-10-23] MEDS: THIAMINE 100 MG TAB PO (08:58)
[2018-10-23] MEDS: BACLOFEN 10 MG TAB PO ×3 (08:59→20:21)
[2018-10-23] MEDS: METOPROLOL 25 MG TAB PO ×3 (08:59→20:21)
[2018-10-23] MEDS: HEPARIN 5,000 UNIT/1 ML VIAL SC ×2 (09:04→20:24)
[2018-10-23] MEDS: WARFARIN 5 MG TAB PO (17:40)
[2018-10-23] MEDS ORDERED: ONDANSETRON 4 MG INJ IV (18:00)
[2018-10-23] MEDS: ONDANSETRON INJ 8 MG in SOD CHLORIDE 0.9% 50 ML IV (21:11)
[2018-10-24] MEDS: HYOSCYAMINE 0.125 MG SUBL TAB PO ×3 (05:14→22:09)
[2018-10-24] MEDS: PANTOPRAZOLE (EC) 40 MG TAB PO ×2 (05:14→17:24)
[2018-10-24] MEDS: morphine 2 MG INJ IV ×2 (05:15→12:21)
[2018-10-24 06:31] LABS: INR 0.97
[2018-10-24 06:38] LABS: ANION GAP 7 (5-13); BLOOD UREA NITROGEN 21 mg/dl (7-20); CALCIUM 9.6 mg/dl (8.4-10.2); CARBON DIOXIDE 31 mmol/L (21-31); CHLORIDE 105 mmol/L (97-110); CREATININE 1.89 mg/dl (0.61-1.24); Estimated GFR 36 mL/min (>60); GLUCOSE 89 mg/dl (70-220); MAGNESIUM 1.8 mg/dl (1.7-2.5); PHOSPHORUS 3.5 mg/dl (2.5-4.9); POTASSIUM 4.3 mmol/L (3.5-5.1); SODIUM 143 mmol/L (135-144)
[2018-10-24] MEDS: METOPROLOL 25 MG TAB PO ×3 (09:00→20:40)
[2018-10-24] MEDS: THIAMINE 100 MG TAB PO (09:15)
[2018-10-24] MEDS: SEVELAMER CARBONATE 800 MG TABLET PO ×3 (09:15→17:28)
[2018-10-24] MEDS: SUCRALFATE (100 MG/ML) 10ML CUP PO ×4 (09:15→20:38)
[2018-10-24] MEDS: MULTIVIT/CA CARB/B CMPLX/FA TAB PO (09:15)
[2018-10-24] MEDS: BACLOFEN 10 MG TAB PO ×3 (09:16→20:38)
[2018-10-24] MEDS: CHOLECALCIFEROL 2,000 UNIT CAP PO (09:16)
[2018-10-24] MEDS: CREON (12k-38k-60k) 1 CAP PO ×3 (09:16→17:28)
[2018-10-24] MEDS: SENNA TAB PO ×2 (09:16→20:39)
[2018-10-24] MEDS: LACTOBACILLUS RHAMNOSUS CAP PO ×2 (09:16→20:38)
[2018-10-24] MEDS: morphine (ER) 30 MG TAB PO ×2 (09:17→20:39)
[2018-10-24] MEDS: POLYETHYLENE GLYCOL 17 GM PACKET PO (09:17)
[2018-10-24] MEDS: HEPARIN 5,000 UNIT/1 ML VIAL SC (09:20)
[2018-10-24] MEDS: METOCLOPRAMIDE 10 MG TAB PO (12:28)
[2018-10-24] MEDS ORDERED: morphine 2 MG INJ IV (13:00)
[2018-10-24] MEDS: ONDANSETRON INJ 8 MG in SOD CHLORIDE 0.9% 50 ML IV (16:26)
[2018-10-24] MEDS: HYDROmorphONE 2 MG TAB PO (17:23)
[2018-10-24] MEDS: WARFARIN 5 MG TAB PO (17:25)
[2018-10-24] MEDS: EPOETIN ALFA-EPBX (ESRD) 10,000 UNIT/ML VIAL SC (17:26)
[2018-10-24] MEDS: LORAZEPAM 1 MG TAB PO (22:14)
[2018-10-25] MEDS: HYDROmorphONE 2 MG TAB PO ×4 (00:09→17:34)
[2018-10-25] MEDS: HYOSCYAMINE 0.125 MG SUBL TAB PO ×3 (05:18→21:12)
[2018-10-25] MEDS: PANTOPRAZOLE (EC) 40 MG TAB PO ×2 (05:18→17:34)
[2018-10-25 05:36] LABS: ADD MAN DIFF? NO
[2018-10-25 05:48] LABS: BASOPHIL # 0.1 10^3/ul (0.0-0.1); BASOPHILS % 0.6 % (0.0-2.0); EOSINOPHILS # 0.3 10^3/ul (0.0-0.5); EOSINOPHILS % 3.7 % (0.0-7.0); HEMATOCRIT 34.6 % (42.0-52.0); HEMOGLOBIN 10.3 g/dl (14.0-18.0); LYMPHOCYTES # 1.8 10^3/ul (0.8-2.9); LYMPHOCYTES % 19.3 % (15.0-51.0); MEAN CORPUSCULAR HEMOGLOBIN 29.4 pg (29.0-33.0); MEAN CORPUSCULAR HGB CONC 29.8 g/dl (32.0-37.0); MEAN CORPUSCULAR VOLUME 98.9 fl (82.0-101.0); MONOCYTE # 1.1 10^3/ul (0.3-0.9); MONOCYTES % 11.6 % (0.0-11.0); NEUTROPHILS % 64.2 % (39.0-77.0); PLATELET COUNT 263 10^3/UL (140-415); POSITIVE DIFF @See below; RED CELL DISTRIBUTION WIDTH 17.2 % (11.5-14.5)
[2018-10-25 05:48] LABS: WHITE BLOOD COUNT 9.3 10^3/ul (4.8-10.8)
[2018-10-25 05:53] LABS: INR 0.99; PROTIME 13.2 Sec (11.9-14.9)
[2018-10-25 06:03] LABS: ANION GAP 6 (5-13); BLOOD UREA NITROGEN 24 mg/dl (7-20); CALCIUM 9.5 mg/dl (8.4-10.2); CARBON DIOXIDE 32 mmol/L (21-31); CHLORIDE 104 mmol/L (97-110); CREATININE 1.87 mg/dl (0.61-1.24); Estimated GFR 37 mL/min (>60); GLUCOSE 101 mg/dl (70-220); MAGNESIUM 1.7 mg/dl (1.7-2.5); PHOSPHORUS 3.4 mg/dl (2.5-4.9); POTASSIUM 4.5 mmol/L (3.5-5.1); SODIUM 142 mmol/L (135-144)
[2018-10-25] MEDS: LORAZEPAM 1 MG TAB PO ×3 (06:12→18:48)
[2018-10-25] MEDS: CREON (12k-38k-60k) 1 CAP PO ×3 (09:00→17:33)
[2018-10-25] MEDS: SEVELAMER CARBONATE 800 MG TABLET PO ×3 (09:00→17:33)
[2018-10-25] MEDS: morphine (ER) 30 MG TAB PO ×2 (09:14→21:16)
[2018-10-25] MEDS: METOCLOPRAMIDE 10 MG TAB PO (09:18)
[2018-10-25] MEDS: SUCRALFATE (100 MG/ML) 10ML CUP PO ×4 (10:02→21:12)
[2018-10-25] MEDS: METOPROLOL 25 MG TAB PO ×3 (10:03→21:13)
[2018-10-25] MEDS: BACLOFEN 10 MG TAB PO ×3 (10:03→21:12)
[2018-10-25] MEDS: LACTOBACILLUS RHAMNOSUS CAP PO ×2 (10:03→21:12)
[2018-10-25] MEDS: CHOLECALCIFEROL 2,000 UNIT CAP PO (10:04)
[2018-10-25] MEDS: THIAMINE 100 MG TAB PO (10:04)
[2018-10-25] MEDS: MULTIVIT/CA CARB/B CMPLX/FA TAB PO (10:04)
[2018-10-25] MEDS: SENNA TAB PO ×2 (10:04→21:12)
[2018-10-25] MEDS: POLYETHYLENE GLYCOL 17 GM PACKET PO (10:04)
[2018-10-25] MEDS: ONDANSETRON INJ 8 MG in SOD CHLORIDE 0.9% 50 ML IV (10:31)
[2018-10-25] MEDS: WARFARIN 5 MG TAB PO (17:34)
[2018-10-26] MEDS: HYDROmorphONE 2 MG TAB PO ×4 (00:17→19:51)
[2018-10-26] MEDS: HYOSCYAMINE 0.125 MG SUBL TAB PO ×2 (05:44→14:32)
[2018-10-26] MEDS: PANTOPRAZOLE (EC) 40 MG TAB PO ×2 (05:45→17:18)
[2018-10-26 06:37] LABS: INR 1.17; PT RATIO 1.2
[2018-10-26 06:39] LABS: ANION GAP 8 (5-13); BLOOD UREA NITROGEN 25 mg/dl (7-20); CALCIUM 10.1 mg/dl (8.4-10.2); CARBON DIOXIDE 32 mmol/L (21-31); CHLORIDE 103 mmol/L (97-110); CREATININE 1.87 mg/dl (0.61-1.24); Estimated GFR 37 mL/min (>60); GLUCOSE 93 mg/dl (70-220); MAGNESIUM 1.7 mg/dl (1.7-2.5); PHOSPHORUS 4.1 mg/dl (2.5-4.9); POTASSIUM 4.6 mmol/L (3.5-5.1); SODIUM 143 mmol/L (135-144)
[2018-10-26] MEDS: LORAZEPAM 1 MG TAB PO ×2 (06:45→19:50)
[2018-10-26] MEDS: SUCRALFATE (100 MG/ML) 10ML CUP PO ×3 (08:39→17:18)
[2018-10-26] MEDS: SENNA TAB PO (08:39)
[2018-10-26] MEDS: CREON (12k-38k-60k) 1 CAP PO ×3 (08:39→17:19)
[2018-10-26] MEDS: MULTIVIT/CA CARB/B CMPLX/FA TAB PO (08:39)
[2018-10-26] MEDS: morphine (ER) 30 MG TAB PO (08:40)
[2018-10-26] MEDS: CHOLECALCIFEROL 2,000 UNIT CAP PO (08:41)
[2018-10-26] MEDS: METOPROLOL 25 MG TAB PO ×2 (08:41→14:33)
[2018-10-26] MEDS: SEVELAMER CARBONATE 800 MG TABLET PO ×3 (08:41→17:19)
[2018-10-26] MEDS: POLYETHYLENE GLYCOL 17 GM PACKET PO (08:41)
[2018-10-26] MEDS: LACTOBACILLUS RHAMNOSUS CAP PO (08:41)
[2018-10-26] MEDS: THIAMINE 100 MG TAB PO (08:41)
[2018-10-26] MEDS: BACLOFEN 10 MG TAB PO ×2 (08:41→14:32)
[2018-10-26] MEDS ORDERED: LIDOCAINE 1%/EPI (1:100,000) (MDV) 20 ML (12:01)
[2018-10-26] MEDS: VANCOMYCIN 1 GM 250 ML IVPB (15:20)
[2018-10-26] MEDS: WARFARIN 5 MG TAB PO (17:19)
[2018-10-26] MEDS: EPOETIN ALFA-EPBX (ESRD) 10,000 UNIT/ML VIAL SC (17:21)
== END 2018-10-26 21:00 | DRG 438 ==
LOC: 6WM 09-29 00:10 → 5EC 10-11 20:59 → 2NE 22:51
PROVIDERS: Hospitalist
PROC: 0DB98ZX Excision of Duodenum, Via Natural or Artificial Opening Endoscopic, Diagnostic (ICD-10-PCS; principal; 2018-10-05 14:30)
PROC: 0DB68ZX Excision of Stomach, Via Natural or Artificial Opening Endoscopic, Diagnostic (ICD-10-PCS; 2018-10-05 14:30)
PROC: 5A1D70Z Performance of Urinary Filtration, Intermittent, Less than 6 Hours Per Day (ICD-10-PCS; 2018-10-05 15:25)
PROC: 30233N1 Transfusion of Nonautologous Red Blood Cells into Peripheral Vein, Percutaneous Approach (ICD-10-PCS; 2018-10-05 15:25)
PROC: 0JPT3XZ Removal of Tunneled Vascular Access Device from Trunk Subcutaneous Tissue and Fascia, Percutaneous Approach (ICD-10-PCS; 2018-10-05 15:25)
PROC: 02PY33Z Removal of Infusion Device from Great Vessel, Percutaneous Approach (ICD-10-PCS; 2018-10-05 15:25)
DX: K85.90 Acute pancreatitis without necrosis or infection, unspecified (principal); K29.01 Acute gastritis with bleeding; I81 Portal vein thrombosis; K25.0 Acute gastric ulcer with hemorrhage; E87.0 Hyperosmolality and hypernatremia; K31.0 Acute dilatation of stomach; J98.11 Atelectasis; N17.9 Acute kidney failure, unspecified; I47.1 Supraventricular tachycardia; N30.00 Acute cystitis without hematuria; Q45.3 Other congenital malformations of pancreas and pancreatic duct; K86.1 Other chronic pancreatitis; D63.8 Anemia in other chronic diseases classified elsewhere; D50.9 Iron deficiency anemia, unspecified; E87.6 Hypokalemia; E07.9 Disorder of thyroid, unspecified; E83.42 Hypomagnesemia; E11.65 Type 2 diabetes mellitus with hyperglycemia; E11.43 Type 2 diabetes mellitus with diabetic autonomic (poly)neuropathy; E11.22 Type 2 diabetes mellitus with diabetic chronic kidney disease; F41.9 Anxiety disorder, unspecified; G89.4 Chronic pain syndrome; I71.4 Abdominal aortic aneurysm, without rupture; I12.9 Hypertensive chronic kidney disease with stage 1 through stage 4 chronic kidney disease, or unspecified chronic kidney disease; K31.84 Gastroparesis; K31.89 Other diseases of stomach and duodenum; K59.00 Constipation, unspecified; K76.0 Fatty (change of) liver, not elsewhere classified; K73.9 Chronic hepatitis, unspecified; M62.838 Other muscle spasm; N18.9 Chronic kidney disease, unspecified; R07.9 Chest pain, unspecified; B95.2 Enterococcus as the cause of diseases classified elsewhere; B96.5 Pseudomonas (aeruginosa) (mallei) (pseudomallei) as the cause of diseases classified elsewhere; Z16.24 Resistance to multiple antibiotics; Z99.2 Dependence on renal dialysis; Z79.891 Long term (current) use of opiate analgesic
CPT/HCPCS: 36430; 36589; 71045; 71250; 73060; 74176; 74181; 76705; 80048; 80053; 80061; 80202; 81001; 82306; 82550; 82607; 82746; 82962; 83036; 83540; 83605; 83690; 83735; 83880; 84100; 84134; 84443; 84484; 85025; 85610; 86803; 86850; 86900; 86901; 86920; 87040-91; 87086; 87340; 88305; 88313; 90935; 93005; 93306; 93970; 97110; 97116; 97161; 97164; 97530